=== PATIENT | female | born 1940 ===

== ENCOUNTER 2016-09-19 11:23 | Inpatient (IN) | payer BC ==
[2016-09-19] MEDS ORDERED: Dextrose 50% Syringe 50 ML* 25 GM/50 ML SYRINGE IV PUSH PRN (12:43)
[2016-09-19] MEDS ORDERED: Sevelamer TAB* 800 MG PO SCH (13:00)
[2016-09-19 13:57] LABS: Albumin 3.5 g/dL (3.2-5.2); BUN/Creatinine Ratio 5.1 (8-20); Calcium 9.8 mg/dL (8.6-10.3); EGFR African American 9.8 (>60); EGFR Non-African American 7.6 (>60); Globulin 3.3 g/dL (2-4); Potassium 3.6 mmol/L (3.5-5.0); Total Bilirubin 0.5 mg/dL (0.2-1.0); Total Protein 6.8 g/dL (6.4-8.9)
[2016-09-19] MEDS: Aspirin Low Dose CHEW TAB* 81 MG PO SCH (15:50)
[2016-09-19] MEDS: Metoprolol Succinate XL TAB* 25 MG PO SCH (15:50)
[2016-09-19] MEDS: Heparin VIAL(*) 5000 UNITS/ML VIAL (FIVE THOUSAND) SUBCUT SCH ×2 (15:51→22:20)
--- NOTE | 2016-09-19 16:51 | HP ---
MEDICINE HISTORY AND PHYSICAL: DATE OF ADMISSION: 09/19/16 PROVIDER: Renee Sim NP. ATTENDING PHYSICIAN: Dr. Octavio Otoole* (dictated by Renee Sim NP). CONSULTING PHYSICIAN: Dr. Gary Hernandez, Nephrology. PRIMARY CARE PHYSICIAN: Dr. Adria Maurice. CHIEF COMPLAINT: Right knee giving way. HISTORY OF PRESENT ILLNESS: Ms. Roche is a 76-year-old female with a past medical history significant for chronic renal failure stage III, on hemodialysis ; diabetes; hypertension; syncope who presented to the ED at [facility] after falling at home. The patient states that she has had recurrent problem with her right knee giving out and having falls due to this process. She states that this happens approximately every other day and she has been evaluated in the [facility] ER multiple times with no acute findings. She does have an upcoming appointment with Dr. Terrell that was scheduled; however, this most recent times , yesterday, the patient fell and states that she was on the floor for approximately 5 hours. She reports she was able to call and receive help. After this episode, she discussed with her son and feels that it may be appropriate for her to be placed and more over she can receive further assistance. She denies any head injury from this most recent fall. She does report some low back discomfort. She denies any neck pain, headache, or dizziness. She denies any focal weakness, tingling, or numbness in her extremities. She does report right knee pain associated with weight bearing. She denies any chest pain, shortness of breath, palpitations, or syncope. PAST MEDICAL HISTORY: Significant for: 1. Chronic renal failure stage III, on hemodialysis. 2. Type 2 diabetes. 3. Hypertension. 4. History of syncope. 5. Gout. 6. GERD. PAST SURGICAL HISTORY: Includes AV fistula placed in the left upper extremity. MEDICATIONS: 1. Omeprazole 20 mg b.i.d. 2. Renvela 800 mg q.i.d. 3. Metoprolol succinate XL 25 mg daily. 4. Aspirin 81 mg daily. 5. Amlodipine 5 mg at bedtime. ALLERGIES: Include ALLOPURINOL and INDOMETHACIN. FAMILY HISTORY: The patient reports that she had a father who lived to be 94- years old before passing away and a mother who lived to 100 years old. She does not know of any other medical history for her parents or other family members. SOCIAL HISTORY: She reports being a former smoker, but states that she quit over 50 years ago. She reports very rare alcohol use and denies any illicit drug use. She lives at home alone in an apartment. She does have access to an alarm in the apartment to notify her need for help. She has 2 sons who check in on her. Her sons, Ed and are both her emergency decision makers although she lists Ed Merritt as the primary healthcare proxy in the event of an emergency. REVIEW OF SYSTEMS: The patient denies fever, changes in appetite. She denies chest pain, edema, palpitations, or syncope. She denies shortness of breath, cough, hemoptysis, or recent flu-like or cold-like symptoms. She denies abdominal pain, nausea, vomiting, or diarrhea. She denies any dysuria or hematuria. She denies focal weakness or sensory loss. She denies tingling or numbness in her extremities. She denies any new visual, hearing, or swallowing complaints. She does report right knee pain and lower back pain. She denies any new rashes or lesions. She denies anxiety or depression. PHYSICAL EXAMINATION GENERAL: Ms. Roche is a 76-year-old female who is sitting up in the hospital bed in no acute distress. She is well nourished, well developed. She is alert and oriented. She is pleasant and cooperative. She is in no acute distress. VITAL SIGNS: Temperature 97.4, pulse rate 77, respiratory rate 18, blood pressure 141/89, O2 saturation 95% on room air. HEENT: Head is atraumatic, normocephalic. Face is symmetrical. Pupils are equal, round, and reactive to light. Extraocular movements are intact. External ears and nose are normal. Oral mucosa appears moist. There is no oropharyngeal erythema or exudate. NECK: Supple. No lymphadenopathy noted. No JVD noted. RESPIRATORY: Lungs are clear to auscultation. There is no accessory muscle use. CARDIAC: S1 and S2 heart sounds. Regular rate and rhythm. ABDOMEN: Soft, nontender, nondistended. Bowel sounds are present in all 4 quadrants. EXTREMITIES: The patient does have pitting edema to the bilateral lower extremities with the right slightly greater than the left. MUSCULOSKELETAL: There is no clubbing or cyanosis. The patient is able to move extremities. There is a right knee edema as well as lower extremity edema. SKIN: Limited examination, appears grossly intact. There is an area of erythema to the coccyx that is not open. NEUROLOGIC: No focal deficits noted. Cranial nerves II through XII are grossly intact. PSYCH: She is alert and oriented x3. Her affect is appropriate. LABORATORY DATA AND DIAGNOSTIC STUDIES: BMP was not included with her transfer records. A CBC from this morning shows WBC count of 2.76, hemoglobin of 7.8, hematocrit 35.6, platelet count 181. CT of the pelvis without contrast this morning shows no acute fracture or dislocation. CT of the lumbar spine shows degenerative changes as described without acute fracture or subluxation. Medical records from [facility] were reviewed. ASSESSMENT AND PLAN: Ms. Roche is a 76-year-old female who presented to the ED at [facility] today for evaluation of a fall and right knee derangements. She will be admitted as an inpatient to [facility] for placement and with need for dialysis. Plan is as follows: 1. Multiple falls at home secondary to right knee weakness: Admit as an inpatient. PT/OT consults are ordered. Social work has been consulted. The patient has reportedly had multiple falls and likely needs a safer placement for the PT, OT, and evaluation of her ability to safely ambulate. The patient has limited range of motion of the right knee and was actually due to see Ortho as an outpatient. At this time, we will continue with therapies and evaluation by PT/OT and have her to be out of bed with assistance. She does have some lower extremity edema bilaterally which she says is normal. The calves were nontender and she does report having a brace on the knee previously which resulted in increased swelling in the lower extremity. We will continue to monitor and order GOSIA hose for the patient. 2. Chronic renal failure stage III: The patient reportedly attends dialysis Sunday, Sunday, Fridays in [place] with [facility]. I have discussed the patient with Dr. Hernandez who will see her and help in assisting and also arranging her dialysis here while we try to obtain placement for the patient. We will continue her Renvela and order her renal diet. 3. History of diabetes: The patient is not currently on medication. We will order fingerstick blood glucose checks and cover with lispro sliding scale insulin. 4. Hypertension: Continue home amlodipine and metoprolol. 5. Gastroesophageal reflux disease: Continue omeprazole. 6. Fluids, electrolytes, and nutrition: She is ordered a renal diet. 7. DVT prophylaxis: She is at high risk. She is ordered subcu heparin and GOSIA hose. 8. Code status: She is a full code. TIME SPENT: Total time spent on this admission was approximately 60 minutes, more than half that time was spent [id number] with the patient obtaining history and physical, performing physical examination, and reviewing the plan of care. Plan of care was also reviewed with my attending, Dr. Otoole, who is in agreement. RENEE SIM NP CC: Dr. Adria Maurice * [id number]/CPS #: [id number] [facility]
[2016-09-19] MEDS: Sevelamer TAB* 800 MG PO SCH ×2 (18:32→21:05)
[2016-09-19] MEDS: Insulin LISPRO* 1 UNITS UNIT SUBCUT SCH (18:33)
[2016-09-19] MEDS: amLODIPine TAB* 5 MG PO SCH (21:05)
[2016-09-19] MEDS: Omeprazole CAP* 20 MG PO SCH (21:05)
[2016-09-20 05:33] LABS: Hematocrit 35 % (35-47); Hemoglobin 10.9 g/dl (12.0-16.0); Mean Corpuscular HGB Conc 32 g/dl (31-36); Mean Corpuscular Hemoglobin 27 pg (27-31); Mean Corpuscular Volume 84 fL (80-97); Mean Platelet Volume 8 um3 (7.4-10.4); Red Blood Count 4.09 10^6/ul (4.0-5.4); Red Cell Distribution Width 17 % (10.5-15); White Blood Count 2.8 10^3/ul (3.5-10.8)
[2016-09-20 05:35] LABS: Add Diff/Slide Review? Slide Review Added; Comments Flag Yes
[2016-09-20 05:45] LABS: BUN/Creatinine Ratio 5.6 (8-20); Calcium 9.6 mg/dL (8.6-10.3); EGFR African American 7.8 (>60); EGFR Non-African American 6.1 (>60); Potassium 4.3 mmol/L (3.5-5.0)
[2016-09-20] MEDS: Heparin VIAL(*) 5000 UNITS/ML VIAL (FIVE THOUSAND) SUBCUT SCH ×3 (05:50→22:36)
[2016-09-20] MEDS: Insulin LISPRO* 1 UNITS UNIT SUBCUT SCH ×3 (08:18→16:49)
[2016-09-20] MEDS: Metoprolol Succinate XL TAB* 25 MG PO SCH (08:52)
[2016-09-20] MEDS: Sevelamer TAB* 800 MG PO SCH ×4 (08:52→22:14)
[2016-09-20] MEDS: Aspirin Low Dose CHEW TAB* 81 MG PO SCH (08:52)
[2016-09-20] MEDS: Omeprazole CAP* 20 MG PO SCH ×2 (08:52→22:13)
--- NOTE | 2016-09-20 17:43 | PN ---
Subjective Date of Service: 09/20/16 Interval History: Patient seen and examined at bedside. Pt states that she is feeling well today. Pt reports some dizziness with dialysis earlier today, but that is gone now. Denies fever, chills, shortness of breath, chest discomfort, N/V/D. Family History: Unchanged from Admission Social History: Unchanged from Admission Past Medical History: Unchanged from Admission Objective Active Medications: Amlodipine Besylate (Norvasc Tab*) 5 mg PO BEDTIME [facility] Aspirin (Aspirin Low Dose Tab*) 81 mg PO DAILY COUNTS [facility]CLUDE 234 BEDS AT [facility] Dextrose (D50w Syringe 50 Ml*) 12.5 gm IV PUSH .FOR FS < 60 - SS PRN Reason: FS < 60 Heparin Sodium (Porcine) (Heparin Vial(*)) 5,000 units SUBCUT Q8HR [facility] Insulin Human Lispro (Humalog*) 0 units SUBCUT AC COUNTS INCLUDE 234 BEDS AT THE [facility] Reason: Protocol Metoprolol Succinate (Toprol Xl Tab*) 25 mg PO DAILY COUNTS INCLUDE 234 BEDS AT THE [facility] Omeprazole (Prilosec Cap*) 20 mg PO BID [facility] Sevelamer Carbonate (Renvela Tab*) 800 mg PO QID [facility] Vital Signs 09/19/16 09/20/16 09/20/16 20:00 00:10 04:09 Temperature 97.5 F Pulse Rate 72 65 Respiratory 16 18 14 Rate Blood Pressure 148/70 150/72 (mmHg) O2 Sat by Pulse 94 97 Oximetry 09/20/16 09/20/16 09/20/16 07:27 08:00 11:03 Temperature 97.4 F 97.7 F Pulse Rate 70 63 Respiratory 16 16 16 Rate Blood Pressure 149/64 137/55 (mmHg) O2 Sat by Pulse 95 99 Oximetry Oxygen Devices in Use Now: None Appearance: NAD, sitting up in a chair. Eyes: No Scleral Icterus, PERRLA Ears/Nose/Mouth/Throat: NL Teeth, Lips, Gums, Mucous Membranes Moist Neck: NL Appearance and Movements; NL JVP, Trachea Midline Respiratory: Symmetrical Chest Expansion and Respiratory Effort, Clear to Auscultation Cardiovascular: NL Sounds; No Murmurs; No JVD, RRR Abdominal: NL Sounds; No Tenderness; No Distention - Bowel sounds present Extremities: - - 1-2+ bilateral LE edema Skin: No Rash or Ulcers Neurological: Alert and Oriented x 3, NL Muscle Strength and Tone Lines/Tubes/Other Access: Clean, Dry and Intact Peripheral IV - site benign Nutrition: Taking PO's Result Diagrams: 09/20/16 05:13 09/20/16 05:13 Assess/Plan/Problems-Billing Assessment: Ms. Roche is a 76 yo female with PMH significant for renal failure - on hemodialysis, DM, HTN and GERD who presented to the emergency room with complaints of falling at home d/t right knee weakness. - Patient Problems (1) Multiple falls Code(s): R29.6 - REPEATED FALLS SNOMED Code(s): 204745721 Comment: - Continue OT/PT (2) Chronic renal failure, stage 3 (moderate) Code(s): N18.3 - CHRONIC KIDNEY DISEASE, STAGE 3 (MODERATE) SNOMED Code(s): 45505648 Comment: - Continue dialysis M,W,F - Continue Renvela and renal diet (3) Diabetes Code(s): E11.9 - TYPE 2 DIABETES MELLITUS WITHOUT COMPLICATIONS SNOMED Code(s) : 53617258 Comment: - Glucose 120-190's - Continue Lispro SS (4) HTN (hypertension) Code(s): I10 - ESSENTIAL (PRIMARY) HYPERTENSION SNOMED Code(s): 97789425 Comment: - SBP 130-150's - Continue amlodipine and metoprolol (5) GERD (gastroesophageal reflux disease) Code(s): K21.9 - GASTRO-ESOPHAGEAL REFLUX DISEASE WITHOUT ESOPHAGITIS SNOMED Code(s): 142726298 Comment: - Continue Omeprazole (6) DVT prophylaxis Code(s): RBW8620 - SNOMED Code(s): 855432443 Comment: -Continue SQ heparin and TEDs (7) Full code status Code(s): Z78.9 - OTHER SPECIFIED HEALTH STATUS SNOMED Code(s): 090683241 Status and Disposition: Inpatient. Plan for discharge to a detention facility.
[2016-09-20] MEDS: amLODIPine TAB* 5 MG PO SCH (22:14)
[2016-09-21] MEDS: Acetaminophen TAB* 325 MG PO PRN (03:41)
[2016-09-21] MEDS: Heparin VIAL(*) 5000 UNITS/ML VIAL (FIVE THOUSAND) SUBCUT SCH ×3 (06:11→21:51)
[2016-09-21 07:29] LABS: Hematocrit 33 % (35-47); Hemoglobin 10.3 g/dl (12.0-16.0); Mean Corpuscular HGB Conc 32 g/dl (31-36); Mean Corpuscular Hemoglobin 27 pg (27-31); Mean Corpuscular Volume 85 fL (80-97); Mean Platelet Volume 8 um3 (7.4-10.4); Red Blood Count 3.84 10^6/ul (4.0-5.4); Red Cell Distribution Width 17 % (10.5-15)
[2016-09-21 07:36] LABS: Comments Flag Yes
[2016-09-21] MEDS: Insulin LISPRO* 1 UNITS UNIT SUBCUT SCH ×3 (07:48→18:22)
[2016-09-21 07:55] LABS: BUN/Creatinine Ratio 4.3 (8-20); EGFR African American 13.2 (>60); EGFR Non-African American 10.3 (>60); Potassium 4.4 mmol/L (3.5-5.0)
[2016-09-21] MEDS: Metoprolol Succinate XL TAB* 25 MG PO SCH (10:12)
[2016-09-21] MEDS: Aspirin Low Dose CHEW TAB* 81 MG PO SCH (10:13)
[2016-09-21] MEDS: Omeprazole CAP* 20 MG PO SCH ×2 (10:13→21:49)
[2016-09-21] MEDS: Sevelamer TAB* 800 MG PO SCH ×4 (10:13→21:49)
--- NOTE | 2016-09-21 14:42 | PN ---
Subjective Date of Service: 09/21/16 Interval History: Patient seen this afternoon and again later in the day. Initially says she was confused. Had just woken up from a nap and could not recall where she was or why she was here. Also felt like she had weakness in the legs and that "they're asleep". Later on re-examination she felt back to baseline, AOx3 and recalls the confusion earlier. Family History: Unchanged from Admission Social History: Unchanged from Admission Past Medical History: Unchanged from Admission Objective Active Medications: Acetaminophen (Tylenol Tab*) 650 mg PO Q6H PRN PRN Reason: PAIN Last Admin: 09/21/16 03:41 Dose: 650 mg Amlodipine Besylate (Norvasc Tab*) 5 mg PO BEDTIME [facility] Last Admin: 09/20/16 22:14 Dose: 5 mg Aspirin (Aspirin Low Dose Tab*) 81 mg PO DAILY [facility] Last Admin: 09/21/16 10:13 Dose: 81 mg Dextrose (D50w Syringe 50 Ml*) 12.5 gm IV PUSH .FOR FS < 60 - SS PRN PRN Reason: FS < 60 Heparin Sodium (Porcine) (Heparin Vial(*)) 5,000 units SUBCUT Q8HR [facility] Last Admin: 09/21/16 13:01 Dose: 5,000 units Insulin Human Lispro (Humalog*) 0 units SUBCUT AC [facility] PRN Reason: Protocol Last Admin: 09/21/16 13:02 Dose: 1 units Metoprolol Succinate (Toprol Xl Tab*) 25 mg PO DAILY [facility] Last Admin: 09/21/16 10:12 Dose: 25 mg Omeprazole (Prilosec Cap*) 20 mg PO BID [facility] Last Admin: 09/21/16 10:13 Dose: 20 mg Sevelamer Carbonate (Renvela Tab*) 800 mg PO QID [facility] Last Admin: 09/21/16 13:01 Dose: 800 mg Vital Signs 09/20/16 09/20/16 09/21/16 20:00 23:29 03:38 Temperature 97.3 F 97.7 F Pulse Rate 66 75 Respiratory 16 16 16 Rate Blood Pressure 134/56 135/61 (mmHg) O2 Sat by Pulse 98 97 Oximetry 09/21/16 07:16 Temperature 97.5 F Pulse Rate 68 Respiratory 16 Rate Blood Pressure 148/63 (mmHg) O2 Sat by Pulse 97 Oximetry Oxygen Devices in Use Now: None Appearance: Elderly, F, laying in bed in NAD Eyes: No Scleral Icterus Ears/Nose/Mouth/Throat: Mucous Membranes Moist Neck: NL Appearance and Movements; NL JVP Respiratory: Symmetrical Chest Expansion and Respiratory Effort, Clear to Auscultation Cardiovascular: NL Sounds; No Murmurs; No JVD, RRR Abdominal: NL Sounds; No Tenderness; No Distention Lymphatic: No Cervical Adenopathy Extremities: No Edema Skin: - - LUE fistula Neurological: - - Initially confused, CN II-XII intact, B/L LE weakness with hip flexion but patient states this has been ongoing, sensation intact and symmetric throught UEs and LEs Result Diagrams: 09/21/16 06:30 09/21/16 06:30 Assess/Plan/Problems-Billing Assessment: Ms. Roche is a 76 yo female with PMH significant for renal failure - on hemodialysis, DM, HTN and GERD who presented to the emergency room with complaints of falling at home d/t right knee weakness. - Patient Problems (1) Confusion Current Visit: Yes Comment: Etiology unclear. Was just after she woke up and cleared later. Will check TSH, B12, ammonia. Does not seem c/w CVA, hold on any imaging. Continue to monitor closely. (2) Multiple falls Current Visit: Yes Comment: - Continue OT/PT (3) ESRD (end stage renal disease) Current Visit: Yes Comment: on HD MWF. Continue renvela (4) GERD (gastroesophageal reflux disease) Current Visit: No Comment: - Continue Omeprazole (5) HTN (hypertension) Current Visit: No Status: Chronic Code(s): I10 - ESSENTIAL (PRIMARY) HYPERTENSION SNOMED Code(s): 23415052 Comment: - Continue amlodipine and metoprolol (6) Diabetes Current Visit: No Comment: - Continue Lispro SS (7) DVT prophylaxis Current Visit: Yes Comment: HSQ Status and Disposition: Inpatient. Plan for discharge to a [facility] facility.
[2016-09-21 17:18] LABS: TSH (Thyroid Stimulating Horm) 2.29 mcIU/mL (0.34-5.60)
[2016-09-21] MEDS: amLODIPine TAB* 5 MG PO SCH (21:49)
[2016-09-22] MEDS: Heparin VIAL(*) 5000 UNITS/ML VIAL (FIVE THOUSAND) SUBCUT SCH ×3 (05:59→21:42)
[2016-09-22] MEDS: Aspirin Low Dose CHEW TAB* 81 MG PO SCH (07:56)
[2016-09-22] MEDS: Omeprazole CAP* 20 MG PO SCH ×2 (07:56→20:11)
[2016-09-22] MEDS: Metoprolol Succinate XL TAB* 25 MG PO SCH (07:56)
[2016-09-22] MEDS: Sevelamer TAB* 800 MG PO SCH ×3 (07:56→17:23)
[2016-09-22] MEDS: Insulin LISPRO* 1 UNITS UNIT SUBCUT SCH ×3 (08:13→17:23)
--- NOTE | 2016-09-22 12:11 | DCNOTE ---
Patient seen at HD. No further episodes of confusion. Says her R leg feels "asleep" but this has been ongoing for some time. Pleased to be going to SNF. On exam, RRR, s1 and s2 present, no m/g/r, LUE fistula functioning well, some decreased sensation over parts of the RLE, mild petechial rash (chronic) D/C to [facility]
--- NOTE | 2016-09-22 15:39 | PN ---
Subjective Date of Service: 09/22/16 Interval History: Discharged delayed. Subjective and objective as per discharge note. Family History: Unchanged from Admission Social History: Unchanged from Admission Past Medical History: Unchanged from Admission Objective Active Medications: Acetaminophen (Tylenol Tab*) 650 mg PO Q6H PRN PRN Reason: PAIN Last Admin: 09/21/16 03:41 Dose: 650 mg Amlodipine Besylate (Norvasc Tab*) 5 mg PO BEDTIME [facility] Last Admin: 09/21/16 21:49 Dose: 5 mg Aspirin (Aspirin Low Dose Tab*) 81 mg PO DAILY [facility] Last Admin: 09/22/16 07:56 Dose: 81 mg Dextrose (D50w Syringe 50 Ml*) 12.5 gm IV PUSH .FOR FS < 60 - SS PRN PRN Reason: FS < 60 Heparin Sodium (Porcine) (Heparin Vial(*)) 5,000 units SUBCUT Q8HR [facility] Last Admin: 09/22/16 14:46 Dose: 5,000 units Insulin Human Lispro (Humalog*) 0 units SUBCUT AC [facility] PRN Reason: Protocol Last Admin: 09/22/16 11:55 Dose: Not Given Metoprolol Succinate (Toprol Xl Tab*) 25 mg PO DAILY [facility] Last Admin: 09/22/16 07:56 Dose: 25 mg Omeprazole (Prilosec Cap*) 20 mg PO BID [facility] Last Admin: 09/22/16 07:56 Dose: 20 mg Sevelamer Carbonate (Renvela Tab*) 3,200 mg PO TID WITH MEALS [facility] Vital Signs 09/21/16 09/21/16 09/21/16 20:00 21:40 23:28 Temperature 98.0 F 97.7 F Pulse Rate 69 71 Respiratory 16 16 20 Rate Blood Pressure 135/64 145/60 (mmHg) O2 Sat by Pulse 100 100 Oximetry 09/22/16 09/22/16 07:27 08:00 Temperature 97.5 F Pulse Rate 69 Respiratory 18 18 Rate Blood Pressure 146/78 (mmHg) O2 Sat by Pulse 98 Oximetry Oxygen Devices in Use Now: None Result Diagrams: 09/21/16 06:30 09/21/16 06:30 Assess/Plan/Problems-Billing Assessment: Ms. Roche is a 76 yo female with PMH significant for renal failure - on hemodialysis, DM, HTN and GERD who presented to the emergency room with complaints of falling at home d/t right knee weakness. - Patient Problems (1) Confusion Current Visit: Yes Comment: Resolved, no recurrence. Normal TSH, B12, ammonia. (2) Multiple falls Current Visit: Yes Comment: - Continue OT/PT (3) ESRD (end stage renal disease) Current Visit: Yes Comment: on HD MWF. Continue renvela (changed to accurate dose) (4) GERD (gastroesophageal reflux disease) Current Visit: No Comment: - Continue Omeprazole (5) HTN (hypertension) Current Visit: No Status: Chronic Code(s): I10 - ESSENTIAL (PRIMARY) HYPERTENSION SNOMED Code(s): 54864378 Comment: - Continue amlodipine and metoprolol (6) Diabetes Current Visit: No Comment: - Continue Lispro SS (7) DVT prophylaxis Current Visit: Yes Comment: HSQ Status and Disposition: Inpatient. Plan for discharge to a [facility] facility.
[2016-09-22] MEDS: amLODIPine TAB* 5 MG PO SCH (20:11)
[2016-09-22] MEDS: Acetaminophen TAB* 325 MG PO PRN (20:15)
--- NOTE | 2016-09-23 01:43 | DS ---
DISCHARGE SUMMARY: DATE OF ADMISSION: 09/19/16 DATE OF DISCHARGE: 09/22/16 PRIMARY CARE PHYSICIAN: Dr. Maurice. PRINCIPAL DISCHARGE DIAGNOSIS: Weakness and falls. SECONDARY DIAGNOSES: 1. Hypertension. 2. End-stage renal disease, on hemodialysis. 3. Gastroesophageal reflux disease. DISCHARGE MEDICATION REGIMEN: 1. Omeprazole 20 mg by mouth 2 times daily. 2. Sevelamer 800 mg by mouth 4 times daily. 3. Metoprolol succinate 25 mg by mouth daily. 4. Aspirin 81 mg by mouth daily. 5. Amlodipine 5 mg by mouth at bedtime. 6. Insulin lispro sliding scale. HISTORY OF PRESENT ILLNESS AND HOSPITAL SUMMARY: Please see the full history and physical by Ivonne Altamirano NP, for full details. Briefly, Ms. Roche is a 76-year-old female with a past medical history as above who presented as a transfer from [place] after she initially presented there with recurrent falls at home. The patient had extensive imaging done, with no abnormalities noted. She was transferred to [facility] and she is a chronic dialysis patient, which they do not offer at [facility]. The patient was evaluated by Physical Therapy here and it was felt that she would benefit from rehab facility. She will be transferred to [facility]. She should keep her upcoming appointment as an outpatient with Dr. Terrell of Orthopedics, which was scheduled prior to this hospitalization. TIME SPENT: Total time spent on this discharge 30 minutes. This is a summary of the hospitalization. Please see the full medical record for further details. CC: Dr. Adria Maurice * [id number]/CPS #: [id number] [facility]
[2016-09-23] MEDS: Heparin VIAL(*) 5000 UNITS/ML VIAL (FIVE THOUSAND) SUBCUT SCH ×3 (05:23→21:43)
[2016-09-23] MEDS ORDERED: Senna TAB PO PRN (05:25)
[2016-09-23] MEDS ORDERED: Polyethylene Glycol 3350* 17 GM PACKET PO PRN (05:25)
[2016-09-23] MEDS: Docusate CAP* 100 MG PO PRN ×2 (05:50→21:43)
[2016-09-23] MEDS: Insulin LISPRO* 1 UNITS UNIT SUBCUT SCH ×3 (07:36→16:32)
[2016-09-23] MEDS: Metoprolol Succinate XL TAB* 25 MG PO SCH (09:02)
[2016-09-23] MEDS: Omeprazole CAP* 20 MG PO SCH ×2 (09:02→20:29)
[2016-09-23] MEDS: Sevelamer TAB* 800 MG PO SCH ×3 (09:02→18:16)
[2016-09-23] MEDS: Aspirin Low Dose CHEW TAB* 81 MG PO SCH (09:03)
[2016-09-23] MEDS: Citalopram TAB* 10 MG PO SCH (13:32)
--- NOTE | 2016-09-23 18:19 | PN ---
Subjective Date of Service: 09/23/16 Interval History: Seen and examined Still feels "confused" but has difficulty indicating how. Tells me she would have difficulty if we changed topics but we spoke about her hospital stay, the weather, and the recent election without trouble. She also indicates she has been feeling depressed. Family History: Unchanged from Admission Social History: Unchanged from Admission Past Medical History: Unchanged from Admission Objective Active Medications: Acetaminophen (Tylenol Tab*) 650 mg PO Q6H PRN PRN Reason: PAIN Last Admin: 09/22/16 20:15 Dose: 650 mg Amlodipine Besylate (Norvasc Tab*) 5 mg PO BEDTIME [facility] Last Admin: 09/22/16 20:11 Dose: 5 mg Aspirin (Aspirin Low Dose Tab*) 81 mg PO DAILY [facility] Last Admin: 09/23/16 09:03 Dose: 81 mg Citalopram Hydrobromide (Celexa Tab*) 10 mg PO DAILY [facility] Last Admin: 09/23/16 13:32 Dose: 10 mg Dextrose (D50w Syringe 50 Ml*) 12.5 gm IV PUSH .FOR FS < 60 - SS PRN PRN Reason: FS < 60 Docusate Sodium (Colace Cap*) 100 mg PO BID PRN PRN Reason: CONSTIPATION Last Admin: 09/23/16 05:50 Dose: 100 mg Heparin Sodium (Porcine) (Heparin Vial(*)) 5,000 units SUBCUT Q8HR [facility] Last Admin: 09/23/16 13:32 Dose: 5,000 units Insulin Human Lispro (Humalog*) 0 units SUBCUT AC [facility] PRN Reason: Protocol Last Admin: 09/23/16 16:32 Dose: Not Given Metoprolol Succinate (Toprol Xl Tab*) 25 mg PO DAILY [facility] Last Admin: 09/23/16 09:02 Dose: 25 mg Omeprazole (Prilosec Cap*) 20 mg PO BID [facility] Last Admin: 09/23/16 09:02 Dose: 20 mg Polyethylene Glycol/Electrolytes (Miralax*) 17 gm PO DAILY PRN PRN Reason: CONSTIPATION Last Admin: 09/23/16 09:02 Dose: 17 gm Senna (Senokot Tab*) 2 tab PO BEDTIME PRN PRN Reason: CONSTIPATION Sevelamer Carbonate (Renvela Tab*) 3,200 mg PO TID WITH MEALS [facility] Last Admin: 09/23/16 12:45 Dose: 3,200 mg Vital Signs 09/22/16 09/22/16 09/23/16 20:00 23:55 07:37 Temperature 97.8 F Pulse Rate 73 Respiratory 17 19 16 Rate Blood Pressure 154/62 (mmHg) O2 Sat by Pulse 97 Oximetry 09/23/16 09/23/16 09/23/16 07:53 11:00 15:07 Temperature 97.6 F 97.5 F 98.3 F Pulse Rate 70 71 72 Respiratory 20 18 16 Rate Blood Pressure 137/59 151/72 147/68 (mmHg) O2 Sat by Pulse 100 100 100 Oximetry Oxygen Devices in Use Now: None Appearance: NAD Eyes: No Scleral Icterus, PERRLA Ears/Nose/Mouth/Throat: NL Teeth, Lips, Gums, Clear Oropharnyx, Mucous Membranes Moist Neck: NL Appearance and Movements; NL JVP, Trachea Midline Respiratory: Symmetrical Chest Expansion and Respiratory Effort, Clear to Auscultation Cardiovascular: NL Sounds; No Murmurs; No JVD, RRR Abdominal: NL Sounds; No Tenderness; No Distention Lymphatic: No Cervical Adenopathy Extremities: No Edema Skin: No Rash or Ulcers Neurological: Alert and Oriented x 3 Result Diagrams: 09/21/16 06:30 09/21/16 06:30 Assess/Plan/Problems-Billing Assessment: Ms. Roche is a 76 yo female with PMH significant for renal failure - on hemodialysis, DM, HTN and GERD who presented to the emergency room with complaints of falling at home d/t right knee weakness. - Patient Problems (1) Depression Comment: Pt indicated that she has thought about taking her life but has no plan. She sites her family as the reason she would not hurt herself. I have asked for a psych cconsult. Will hold on their eval prior starting medications. (2) Confusion Comment: Resolved, no recurrence. Normal TSH, B12, ammonia. Possibly in setting of depression (3) ESRD (end stage renal disease) Comment: on HD MWF. Continue renvela (changed to accurate dose) (4) Diabetes Comment: - Continue Lispro SS (5) GERD (gastroesophageal reflux disease) Comment: - Continue Omeprazole (6) HTN (hypertension) Comment: - Continue amlodipine and metoprolol (7) DVT prophylaxis Comment: HSQ Status and Disposition: Inpatient. Plan for discharge to a longterm facility.
[2016-09-23] MEDS: amLODIPine TAB* 5 MG PO SCH (20:29)
--- NOTE | 2016-09-23 20:32 | CONS ---
CONSULTATION NOTE: DATE OF CONSULT: ATTENDING PHYSICIAN: Damon Mckeon MD. CONSULTING PHYSICIAN: Rashi Milligan MD REASON FOR CONSULT: Depressed mood with suicidal ideation. PSYCHIATRIC HISTORY: The patient is a 76-year-old white female with no prior psychiatric hi story who was admitted secondary to chronic renal failure after falling at her home in [place], [place]. The patient apparently has had problems with her right knee giving out with subsequent f alls. She has had multiple ER visits to [facility]. Her most recent visit to [facility] resulted in transfer to [facility] secondary to her need fo r hemodialysis. The primary team is concerned because the patient appeared to have a constricted af fect and when they questioned her about depressive symptoms, she endorsed that she was in fact not o nly depressed but also was having suicidal thought. On examination, she is a delightful ageing whit e female who was found sitting in her chair with excellent posture. Her affect is actually somewhat bright as I enter and she welcomes me into her room, telling me that she was expecting my visit. S he does go on to state that she has had numerous stressors recently. Apparently, her of 45 years in July 2015 and the past year without him has been very troubling for her. She note s that about 2 months ago, she started to notice herself feeling depressed and when screened for brennon rovegetative symptoms she endorses insomnia, anhedonia, guilt, decreased energy, poor concentration, lack of appetite, and psychomotor slowing. She indicates that the suicidal thoughts have occurred for about a week. She has had thoughts of plunging her dialysis needle deeper into her port to caus e further bleeding and end her life that way. When asked whether this is an active thought versus p assive, she indicates that it is a passive idea and that she would never dream of actually ending he r life due to the emotional impact it would have on her 2 sons and her numerous grandchildren. Zoran tional stressors include what she is telling me is a repossession of her car and house due to financ ial limitations. She asked me to call her son Ed Sanchez for further collateral on this; however, when I called his number there was no answer and no voice message. At any rate, the patient indicat es that back in July, she left her home in [place], [place], and got a small apartment in [facility]. At this point, she is facing placement in a skilled nurse facility. PAST PSYCHIATRIC HISTORY: Noncontributory. She has never had suicidal ideations nor actions. She has never been on an antidepressant or received treatment including hospitalizations or medications. SUBSTANCE ABUSE HISTORY: Noncontributory. She has no history of alcohol, illicit drug, or tobacco abuse. PAST MEDICAL HISTORY: Significant for chronic renal failure stage 3 on hemodialysis, type 2 diabete s, hypertension, history of syncope, gout, and gastroesophageal reflux disorder. CURRENT MEDICATIONS: Include: 1. Omeprazole 20 mg b.i.d. 2. Renvela 800 mg p.o. 4 hours a day. 3. Metoprolol XL 25 mg daily. 4. Aspirin 81 mg daily. 5. Amlodipine 5 mg at bedtime. ALLERGIES: She is allergic to ALLOPURINOL and INDOMETHACIN. FAMILY HISTORY: She is unaware of anyone of her family having psychiatric problems. SOCIAL HISTORY: She indicates that she did smoke cigarettes but quit over 50 years ago. She is cur rently living in an apartment in [place], prior to this she lived in a home that she owned in [place], [place]. 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 She has 2 sons, who ar e very close to her and several grandchildren. MENTAL STATUS EXAM: The patient is an ageing white female who is dressed in a patient gown. She is sitting with excellent posture in a chair in her room. She makes good eye contact. She smiles suzi ropriately. Speech has a normal rate, tone and volume. Mood is depressed with a full affect. Thou ght process is linear and goal directed. Thought content is significant for her stress over her hali ing situation and her feeling that she misses her family. She is endorsing suicidal ideation that i s passive in nature and she has no intention or plan of actually ending her life. She denies homici dality. She denies auditory or visual hallucinations. Insight and judgment appears to be fair give n her willingness to receive antidepressant therapy. Cognitively, she is awake and alert with what would appear to be an average intellect. DIAGNOSES: [place] I: Major depressive disorder single episode, severe without psychotic features. Axi s II: Deferred. ASSESSMENT: The patient is a 76-year-old white female with a past medical history of end-st age renal disease who was admitted due to several recent falls in her home, who screens positive for depressed mood and suicidal ideations. It is my opinion that her suicidality is not dangerous in t he sense that it is only passive and she has numerous protective factors including her concern for h er family. She is clearly depressed with neurovegetative symptoms and for this reason, I would evelyn mmend initiation of antidepressant therapy. Because of her advanced age and the fact that she is on multiple medications, I think citalopram would be a good choice. We will start it at a conservativ e dose 10 mg p.o. daily and this can certainly be titrated further as she has been on it longer. Ps ychiatry will continue to follow her. Recommendations to primary team, I have already started Celex a 10 mg p.o. daily and Psychiatry will continue to be involved [facility]. Thank you for the opportunity to participate in the care of this delightful woman. [id number]/[facility] #: [id number]
[2016-09-24] MEDS: Acetaminophen TAB* 325 MG PO PRN ×2 (01:11→21:57)
[2016-09-24] MEDS: Heparin VIAL(*) 5000 UNITS/ML VIAL (FIVE THOUSAND) SUBCUT SCH ×3 (05:16→21:57)
[2016-09-24] MEDS: Insulin LISPRO* 1 UNITS UNIT SUBCUT SCH ×3 (07:53→17:26)
[2016-09-24] MEDS: Metoprolol Succinate XL TAB* 25 MG PO SCH (09:14)
[2016-09-24] MEDS: Sevelamer TAB* 800 MG PO SCH ×3 (09:14→17:32)
[2016-09-24] MEDS: Aspirin Low Dose CHEW TAB* 81 MG PO SCH (09:14)
[2016-09-24] MEDS: Citalopram TAB* 10 MG PO SCH (09:14)
[2016-09-24] MEDS: Omeprazole CAP* 20 MG PO SCH ×2 (09:14→21:57)
--- NOTE | 2016-09-24 16:17 | PN ---
Subjective Date of Service: 09/24/16 Interval History: Has no complaints today. Seems more upbeat. Anxious to leave the hospital Family History: Unchanged from Admission Social History: Unchanged from Admission Past Medical History: Unchanged from Admission Objective Active Medications: Acetaminophen (Tylenol Tab*) 650 mg PO Q6H PRN PRN Reason: PAIN Last Admin: 09/24/16 01:11 Dose: 650 mg Amlodipine Besylate (Norvasc Tab*) 5 mg PO BEDTIME [facility] Last Admin: 09/23/16 20:29 Dose: 5 mg Aspirin (Aspirin Low Dose Tab*) 81 mg PO DAILY [facility] Last Admin: 09/24/16 09:14 Dose: 81 mg Citalopram Hydrobromide (Celexa Tab*) 10 mg PO DAILY [facility] Last Admin: 09/24/16 09:14 Dose: 10 mg Dextrose (D50w Syringe 50 Ml*) 12.5 gm IV PUSH .FOR FS < 60 - SS PRN PRN Reason: FS < 60 Docusate Sodium (Colace Cap*) 100 mg PO BID PRN PRN Reason: CONSTIPATION Last Admin: 09/23/16 21:43 Dose: 100 mg Heparin Sodium (Porcine) (Heparin Vial(*)) 5,000 units SUBCUT Q8HR [facility] Last Admin: 09/24/16 12:43 Dose: 5,000 units Insulin Human Lispro (Humalog*) 0 units SUBCUT AC [facility] PRN Reason: Protocol Last Admin: 09/24/16 12:14 Dose: Not Given Metoprolol Succinate (Toprol Xl Tab*) 25 mg PO DAILY [facility] Last Admin: 09/24/16 09:14 Dose: 25 mg Omeprazole (Prilosec Cap*) 20 mg PO BID [facility] Last Admin: 09/24/16 09:14 Dose: 20 mg Polyethylene Glycol/Electrolytes (Miralax*) 17 gm PO DAILY PRN PRN Reason: CONSTIPATION Last Admin: 09/23/16 09:02 Dose: 17 gm Senna (Senokot Tab*) 2 tab PO BEDTIME PRN PRN Reason: CONSTIPATION Sevelamer Carbonate (Renvela Tab*) 3,200 mg PO TID WITH MEALS [facility] Last Admin: 09/24/16 12:43 Dose: 3,200 mg Vital Signs 09/23/16 09/23/16 09/23/16 19:18 20:00 23:27 Temperature 97.5 F 97.7 F Pulse Rate 72 71 Respiratory 16 17 17 Rate Blood Pressure 151/66 136/48 (mmHg) O2 Sat by Pulse 97 97 Oximetry 09/24/16 08:00 Temperature 97.2 F Pulse Rate 71 Respiratory 16 Rate Blood Pressure 142/65 (mmHg) O2 Sat by Pulse 98 Oximetry Oxygen Devices in Use Now: None Appearance: NAD Eyes: No Scleral Icterus, PERRLA, - Ears/Nose/Mouth/Throat: NL Teeth, Lips, Gums, Clear Oropharnyx, Mucous Membranes Moist, - Neck: NL Appearance and Movements; NL JVP, Trachea Midline Respiratory: Symmetrical Chest Expansion and Respiratory Effort, Clear to Auscultation Cardiovascular: NL Sounds; No Murmurs; No JVD, RRR Abdominal: NL Sounds; No Tenderness; No Distention, No Hepatosplenomegaly Lymphatic: No Cervical Adenopathy Extremities: No Edema, - - fistual with good bruit Neurological: Alert and Oriented x 3 Result Diagrams: 09/21/16 06:30 09/21/16 06:30 Assess/Plan/Problems-Billing Assessment: Ms. oRche is a 76 yo female with PMH significant for renal failure - on hemodialysis, DM, HTN and GERD who presented to the emergency room with complaints of falling at home d/t right knee weakness. - Patient Problems (1) Depression Comment: Appreciate psych consult started on celexa pt without any pasisve SI today (2) Confusion Comment: Resolved, no recurrence. Normal TSH, B12, ammonia. Possibly in setting of depression (3) ESRD (end stage renal disease) Comment: on HD MWF. Continue renvela (changed to accurate dose) (4) Diabetes Comment: - Continue Lispro SS (5) GERD (gastroesophageal reflux disease) Comment: - Continue Omeprazole (6) HTN (hypertension) Comment: - Continue amlodipine and metoprolol (7) DVT prophylaxis Comment: HSQ Status and Disposition: Inpatient. Plan for discharge to a longterm facility.
[2016-09-24] MEDS: amLODIPine TAB* 5 MG PO SCH (21:56)
[2016-09-25] MEDS: Heparin VIAL(*) 5000 UNITS/ML VIAL (FIVE THOUSAND) SUBCUT SCH ×3 (05:52→21:54)
[2016-09-25] MEDS: Insulin LISPRO* 1 UNITS UNIT SUBCUT SCH ×3 (08:21→17:38)
[2016-09-25] MEDS: Sevelamer TAB* 800 MG PO SCH ×3 (09:04→17:39)
[2016-09-25] MEDS: Metoprolol Succinate XL TAB* 25 MG PO SCH (09:05)
[2016-09-25] MEDS: Omeprazole CAP* 20 MG PO SCH ×2 (09:05→21:51)
[2016-09-25] MEDS: Citalopram TAB* 10 MG PO SCH (09:05)
[2016-09-25] MEDS: Aspirin Low Dose CHEW TAB* 81 MG PO SCH (09:05)
--- NOTE | 2016-09-25 13:56 | CONSULT ---
Identification - Patient Identification Reason for Psychiatric Consultation: Suicidal Ideation -: Patient is a 76 year old, F admitted on 09/19/16. - MHU Identification Employment Status: Disabled Hx Psychiatric Hospitalization: No History - Objective HPI: The patient was found today in the dialysis room. Her affect appears improved and she reports that she is likely being discharged soon to a SNF in [place], [place]. The patient denies any noticeable untoward effects from the citalopram we started over the weekend and she seems to be tolerating this well. She is delightful to talk to and tells me about her family and grandchildren. She denies any suicidal thoughts, plans or intentions since our previous meeting. Lab Results: Laboratory Tests 09/19/16 09/19/16 09/19/16 13:03 13:28 16:48 WBC RBC Hgb Hct MCV MCH MCHC RDW Plt Count MPV Neut % (Auto) Lymph % (Auto) Lewis % (Auto) Eos % (Auto) Baso % (Auto) Absolute Neuts (auto) Absolute Lymphs (auto) Absolute Monos (auto) Absolute Eos (auto) Absolute Basos (auto) Absolute Nucleated RBC Nucleated RBC % Sodium 134 Potassium 3.6 Chloride 99 L Carbon Dioxide 29 Anion Gap 6 BUN 28 H Creatinine 5.46 H Est GFR ( Amer) 9.8 Est GFR (Non-Af Amer) 7.6 BUN/Creatinine Ratio 5.1 L Glucose 84 POC Glucose (mg/dL) 103 138 H Calcium 9.8 Total Bilirubin 0.50 AST 9 L ALT 3 L Alkaline Phosphatase 58 Ammonia Total Protein 6.8 Albumin 3.5 Globulin 3.3 Albumin/Globulin Ratio 1.1 Vitamin B12 TSH 09/19/16 09/20/16 09/20/16 21:25 05:13 05:13 WBC 2.8 L RBC 4.09 Hgb 10.9 L Hct 35 MCV 84 MCH 27 MCHC 32 RDW 17 H Plt Count 158 MPV 8 Neut % (Auto) 56.5 Lymph % (Auto) 23.3 L Lewis % (Auto) 11.0 H Eos % (Auto) 5.9 Baso % (Auto) 3.3 H Absolute Neuts (auto) 1.6 Absolute Lymphs (auto) 0.6 L Absolute Monos (auto) 0.3 Absolute Eos (auto) 0.2 Absolute Basos (auto) 0.1 Absolute Nucleated RBC 0 Nucleated RBC % 0.1 Sodium 131 L Potassium 4.3 Chloride 97 L Carbon Dioxide 28 Anion Gap 6 BUN 37 H Creatinine 6.63 H Est GFR ( Amer) 7.8 Est GFR (Non-Af Amer) 6.1 BUN/Creatinine Ratio 5.6 L Glucose 117 H POC Glucose (mg/dL) 199 H Calcium 9.6 Total Bilirubin AST ALT Alkaline Phosphatase Ammonia Total Protein Albumin Globulin Albumin/Globulin Ratio Vitamin B12 [facility] 09/20/16 09/20/16 09/20/16 08:01 11:44 16:46 WBC RBC Hgb Hct MCV MCH MCHC RDW Plt Count MPV Neut % (Auto) Lymph % (Auto) Lewis % (Auto) Eos % (Auto) Baso % (Auto) Absolute Neuts (auto) Absolute Lymphs (auto) Absolute Monos (auto) Absolute Eos (auto) Absolute Basos (auto) Absolute Nucleated RBC Nucleated RBC % Sodium Potassium Chloride Carbon Dioxide Anion Gap BUN Creatinine Est GFR ( Amer) Est GFR (Non-Af Amer) BUN/Creatinine Ratio Glucose POC Glucose (mg/dL) 128 H 168 H 129 H Calcium Total Bilirubin AST ALT Alkaline Phosphatase Ammonia Total Protein Albumin Globulin Albumin/Globulin Ratio Vitamin B12 [facility] 09/20/16 09/21/16 09/21/16 22:13 06:30 06:30 WBC 3.0 L RBC 3.84 L Hgb 10.3 L Hct 33 L MCV 85 MCH 27 MCHC 32 RDW 17 H Plt Count 148 L MPV 8 Neut % (Auto) 51.2 Lymph % (Auto) 29.3 Lewis % (Auto) 12.0 H Eos % (Auto) 5.2 Baso % (Auto) 2.3 H Absolute Neuts (auto) 1.5 Absolute Lymphs (auto) 0.9 L Absolute Monos (auto) 0.4 Absolute Eos (auto) 0.2 Absolute Basos (auto) 0.1 Absolute Nucleated RBC 0 Nucleated RBC % 0 Sodium 129 L Potassium 4.4 Chloride 102 Carbon Dioxide 21 L Anion Gap 6 BUN 18 Creatinine 4.21 H Est GFR ( Amer) 13.2 Est GFR (Non-Af Amer) 10.3 BUN/Creatinine Ratio 4.3 L Glucose 82 POC Glucose (mg/dL) 123 H Calcium 9.0 Total Bilirubin AST ALT Alkaline Phosphatase Ammonia Total Protein Albumin Globulin Albumin/Globulin Ratio Vitamin B12 [facility] 09/21/16 09/21/16 09/21/16 07:23 11:55 15:49 WBC RBC Hgb Hct MCV MCH MCHC RDW Plt Count MPV Neut % (Auto) Lymph % (Auto) Lewis % (Auto) Eos % (Auto) Baso % (Auto) Absolute Neuts (auto) Absolute Lymphs (auto) Absolute Monos (auto) Absolute Eos (auto) Absolute Basos (auto) Absolute Nucleated RBC Nucleated RBC % Sodium Potassium Chloride Carbon Dioxide Anion Gap BUN Creatinine Est GFR ( Amer) Est GFR (Non-Af Amer) BUN/Creatinine Ratio Glucose POC Glucose (mg/dL) 104 143 H Calcium Total Bilirubin AST ALT Alkaline Phosphatase Ammonia 39 Total Protein Albumin Globulin Albumin/Globulin Ratio Vitamin B12 [facility] 09/21/16 09/21/16 09/21/16 15:49 17:36 21:58 WBC RBC Hgb Hct MCV MCH MCHC RDW Plt Count MPV Neut % (Auto) Lymph % (Auto) Lewis % (Auto) Eos % (Auto) Baso % (Auto) Absolute Neuts (auto) Absolute Lymphs (auto) Absolute Monos (auto) Absolute Eos (auto) Absolute Basos (auto) Absolute Nucleated RBC Nucleated RBC % Sodium Potassium Chloride Carbon Dioxide Anion Gap BUN Creatinine Est GFR ( Amer) Est GFR (Non-Af Amer) BUN/Creatinine Ratio Glucose POC Glucose (mg/dL) 134 H 125 H Calcium Total Bilirubin AST ALT Alkaline Phosphatase Ammonia Total Protein Albumin Globulin Albumin/Globulin Ratio Vitamin B12 670 TSH 2.29 09/22/16 09/22/16 09/22/16 08:10 11:50 17:04 WBC RBC Hgb Hct MCV MCH MCHC RDW Plt Count MPV Neut % (Auto) Lymph % (Auto) Lewis % (Auto) Eos % (Auto) Baso % (Auto) Absolute Neuts (auto) Absolute Lymphs (auto) Absolute Monos (auto) Absolute Eos (auto) Absolute Basos (auto) Absolute Nucleated RBC Nucleated RBC % Sodium Potassium Chloride Carbon Dioxide Anion Gap BUN Creatinine Est GFR ( Amer) Est GFR (Non-Af Amer) BUN/Creatinine Ratio Glucose POC Glucose (mg/dL) 115 H 128 H 138 H Calcium Total Bilirubin AST ALT Alkaline Phosphatase Ammonia Total Protein Albumin Globulin Albumin/Globulin Ratio Vitamin B12 [facility] 09/22/16 09/23/16 09/23/16 20:35 07:32 11:53 WBC RBC Hgb Hct MCV MCH MCHC RDW Plt Count MPV Neut % (Auto) Lymph % (Auto) Lewis % (Auto) Eos % (Auto) Baso % (Auto) Absolute Neuts (auto) Absolute Lymphs (auto) Absolute Monos (auto) Absolute Eos (auto) Absolute Basos (auto) Absolute Nucleated RBC Nucleated RBC % Sodium Potassium Chloride Carbon Dioxide Anion Gap BUN Creatinine Est GFR ( Amer) Est GFR (Non-Af Amer) BUN/Creatinine Ratio Glucose POC Glucose (mg/dL) 123 H 90 140 H Calcium Total Bilirubin AST ALT Alkaline Phosphatase Ammonia Total Protein Albumin Globulin Albumin/Globulin Ratio Vitamin B12 TSH 09/23/16 09/23/16 09/24/16 16:31 21:33 07:52 WBC RBC Hgb Hct MCV MCH MCHC RDW Plt Count MPV Neut % (Auto) Lymph % (Auto) Lewis % (Auto) Eos % (Auto) Baso % (Auto) Absolute Neuts (auto) Absolute Lymphs (auto) Absolute Monos (auto) Absolute Eos (auto) Absolute Basos (auto) Absolute Nucleated RBC Nucleated RBC % Sodium Potassium Chloride Carbon Dioxide Anion Gap BUN Creatinine Est GFR ( Amer) Est GFR (Non-Af Amer) BUN/Creatinine Ratio Glucose POC Glucose (mg/dL) 114 H 149 H 121 H Calcium Total Bilirubin AST ALT Alkaline Phosphatase Ammonia Total Protein Albumin Globulin Albumin/Globulin Ratio Vitamin B12 TSH 09/24/16 09/24/16 09/24/16 12:13 17:17 21:51 WBC RBC Hgb Hct MCV MCH MCHC RDW Plt Count MPV Neut % (Auto) Lymph % (Auto) Lewis % (Auto) Eos % (Auto) Baso % (Auto) Absolute Neuts (auto) Absolute Lymphs (auto) Absolute Monos (auto) Absolute Eos (auto) Absolute Basos (auto) Absolute Nucleated RBC Nucleated RBC % Sodium Potassium Chloride Carbon Dioxide Anion Gap BUN Creatinine Est GFR ( Amer) Est GFR (Non-Af Amer) BUN/Creatinine Ratio Glucose POC Glucose (mg/dL) 118 H 97 134 H Calcium Total Bilirubin AST ALT Alkaline Phosphatase Ammonia Total Protein Albumin Globulin Albumin/Globulin Ratio Vitamin B12 TSH 09/25/16 09/25/16 07:44 12:07 WBC RBC Hgb Hct MCV MCH MCHC RDW Plt Count MPV Neut % (Auto) Lymph % (Auto) Lewis % (Auto) Eos % (Auto) Baso % (Auto) Absolute Neuts (auto) Absolute Lymphs (auto) Absolute Monos (auto) Absolute Eos (auto) Absolute Basos (auto) Absolute Nucleated RBC Nucleated RBC % Sodium Potassium Chloride Carbon Dioxide Anion Gap BUN Creatinine Est GFR ( Amer) Est GFR (Non-Af Amer) BUN/Creatinine Ratio Glucose POC Glucose (mg/dL) 113 H 109 H Calcium Total Bilirubin AST ALT Alkaline Phosphatase Ammonia Total Protein Albumin Globulin Albumin/Globulin Ratio Vitamin B12 TSH Exam Appearance: Thin Framed Hygiene: Normal Grooming: Well Kept Psychomotor Activities: Normal Exhibits Abnormal Movement: No Attitude and Relatedness: Cooperative Eye Contact: Good - Speech Quality: Unpressured Latencies: Normal Quantity: Appropriate Patient's Decription of Mood: "Okay" Observed Affect: Fair Affect Consistent with: Dysphoria Patient's Thought Process: Coherent Thought Content: No Passive Wish, No Suicidal Planning, No Homicidal Ideation, No Paranoid Ideation Experiencing Hallucinations: No, Sensorium is Clear Type of Hallucinations: Visual: No, Auditory: No, Command: No Level of Consciousness: Alert Orientation: Yes Intact, Yes Orientated to Time, Yes Orientated to Place, Yes Orientated to Person Impulse Control: Intact Insight and Judgement: Good Impression - Impression Clinical Impression: Major Depressive DO, single episode, severe without psychotic features Merits Inpatient Hospitalization: No Problem List - MHU Problems Type of Problem: Mood Status of Problem: Active Plan - Treatment Plan Treatment Plan: Will continue citalopram 10mg PO qday. D/C pending to SNF. Follow up with gerontology. Continued Medication Management: Start Medication Medications: Current Medications Acetaminophen (Tylenol Tab*) 650 mg PO Q6H PRN PRN Reason: PAIN Last Admin: 09/24/16 21:57 Dose: 650 mg Amlodipine Besylate (Norvasc Tab*) 5 mg PO BEDTIME [facility] Last Admin: 09/24/16 21:56 Dose: 5 mg Aspirin (Aspirin Low Dose Tab*) 81 mg PO DAILY [facility] Last Admin: 09/25/16 09:05 Dose: 81 mg Citalopram Hydrobromide (Celexa Tab*) 10 mg PO DAILY [facility] Last Admin: 09/25/16 09:05 Dose: 10 mg Dextrose (D50w Syringe 50 Ml*) 12.5 gm IV PUSH .FOR FS < 60 - SS PRN PRN Reason: FS < 60 Docusate Sodium (Colace Cap*) 100 mg PO BID PRN PRN Reason: CONSTIPATION Last Admin: 09/23/16 21:43 Dose: 100 mg Heparin Sodium (Porcine) (Heparin Vial(*)) 5,000 units SUBCUT Q8HR [facility] Last Admin: 09/25/16 05:52 Dose: 5,000 units Insulin Human Lispro (Humalog*) 0 units SUBCUT AC [facility] PRN Reason: Protocol Last Admin: 09/25/16 12:20 Dose: Not Given Metoprolol Succinate (Toprol Xl Tab*) 25 mg PO DAILY [facility] Last Admin: 09/25/16 09:05 Dose: 25 mg Omeprazole (Prilosec Cap*) 20 mg PO BID [facility] Last Admin: 09/25/16 09:05 Dose: 20 mg Polyethylene Glycol/Electrolytes (Miralax*) 17 gm PO DAILY PRN PRN Reason: CONSTIPATION Last Admin: 09/23/16 09:02 Dose: 17 gm Senna (Senokot Tab*) 2 tab PO BEDTIME PRN PRN Reason: CONSTIPATION Sevelamer Carbonate (Renvela Tab*) 3,200 mg PO TID WITH MEALS [facility] Last Admin: 09/25/16 12:30 Dose: 3,200 mg - Discharge Plan Discharge Plan: Outpatient Follow Up
--- NOTE | 2016-09-25 18:32 | PN ---
Subjective Date of Service: 09/25/16 Interval History: Seen during dialysis Feeling upbeat Has no complaints today Family History: Unchanged from Admission Social History: Unchanged from Admission Past Medical History: Unchanged from Admission Objective Active Medications: Acetaminophen (Tylenol Tab*) 650 mg PO Q6H PRN PRN Reason: PAIN Last Admin: 09/24/16 21:57 Dose: 650 mg Amlodipine Besylate (Norvasc Tab*) 5 mg PO BEDTIME [facility] Last Admin: 09/24/16 21:56 Dose: 5 mg Aspirin (Aspirin Low Dose Tab*) 81 mg PO DAILY [facility] Last Admin: 09/25/16 09:05 Dose: 81 mg Citalopram Hydrobromide (Celexa Tab*) 10 mg PO DAILY [facility] Last Admin: 09/25/16 09:05 Dose: 10 mg Dextrose (D50w Syringe 50 Ml*) 12.5 gm IV PUSH .FOR FS < 60 - SS PRN PRN Reason: FS < 60 Docusate Sodium (Colace Cap*) 100 mg PO BID PRN PRN Reason: CONSTIPATION Last Admin: 09/23/16 21:43 Dose: 100 mg Heparin Sodium (Porcine) (Heparin Vial(*)) 5,000 units SUBCUT Q8HR [facility] Last Admin: 09/25/16 14:44 Dose: 5,000 units Insulin Human Lispro (Humalog*) 0 units SUBCUT AC [facility] PRN Reason: Protocol Last Admin: 09/25/16 17:38 Dose: Not Given Metoprolol Succinate (Toprol Xl Tab*) 25 mg PO DAILY [facility] Last Admin: 09/25/16 09:05 Dose: 25 mg Omeprazole (Prilosec Cap*) 20 mg PO BID [facility] Last Admin: 09/25/16 09:05 Dose: 20 mg Polyethylene Glycol/Electrolytes (Miralax*) 17 gm PO DAILY PRN PRN Reason: CONSTIPATION Last Admin: 09/23/16 09:02 Dose: 17 gm Senna (Senokot Tab*) 2 tab PO BEDTIME PRN PRN Reason: CONSTIPATION Sevelamer Carbonate (Renvela Tab*) 3,200 mg PO TID WITH MEALS [facility] Last Admin: 09/25/16 17:39 Dose: 3,200 mg Vital Signs 09/24/16 09/24/16 09/25/16 20:00 23:49 08:00 Temperature 97.1 F Pulse Rate 68 Respiratory 18 16 16 Rate Blood Pressure 152/65 (mmHg) O2 Sat by Pulse 96 Oximetry 09/25/16 09/25/16 08:05 15:48 Temperature 97.6 F 97.7 F Pulse Rate 65 75 Respiratory 16 16 Rate Blood Pressure 155/74 147/66 (mmHg) O2 Sat by Pulse 99 97 Oximetry Oxygen Devices in Use Now: None Appearance: NAD Eyes: No Scleral Icterus, PERRLA Ears/Nose/Mouth/Throat: Clear Oropharnyx, Mucous Membranes Moist Neck: NL Appearance and Movements; NL JVP, Trachea Midline Respiratory: Symmetrical Chest Expansion and Respiratory Effort, Clear to Auscultation Cardiovascular: NL Sounds; No Murmurs; No JVD, RRR Abdominal: NL Sounds; No Tenderness; No Distention, No Hepatosplenomegaly Lymphatic: No Cervical Adenopathy Extremities: No Edema, No Clubbing, Cyanosis Neurological: Alert and Oriented x 3 Result Diagrams: 09/21/16 06:30 09/21/16 06:30 Assess/Plan/Problems-Billing Assessment: Ms. Roche is a 76 yo female with PMH significant for renal failure - on hemodialysis, DM, HTN and GERD who presented to the emergency room with complaints of falling at home d/t right knee weakness. - Patient Problems (1) Depression Comment: Appreciate psych consult started on celexa depression improved. Denies SI (2) Confusion Comment: Resolved, no recurrence. Normal TSH, B12, ammonia. Possibly in setting of depression (3) ESRD (end stage renal disease) Comment: on HD MWF. Continue renvela (changed to accurate dose) (4) Diabetes Comment: - Continue Lispro SS (5) GERD (gastroesophageal reflux disease) Comment: - Continue Omeprazole (6) HTN (hypertension) Comment: - Continue amlodipine and metoprolol (7) DVT prophylaxis Comment: HSQ Status and Disposition: Inpatient. Plan for discharge to a group home facility.
[2016-09-25] MEDS: amLODIPine TAB* 5 MG PO SCH (21:51)
[2016-09-26] MEDS: Acetaminophen TAB* 325 MG PO PRN ×2 (03:32→17:34)
[2016-09-26] MEDS: Heparin VIAL(*) 5000 UNITS/ML VIAL (FIVE THOUSAND) SUBCUT SCH ×3 (05:27→21:11)
[2016-09-26] MEDS: Insulin LISPRO* 1 UNITS UNIT SUBCUT SCH ×3 (08:15→17:07)
[2016-09-26] MEDS: Sevelamer TAB* 800 MG PO SCH ×3 (08:55→21:14)
[2016-09-26] MEDS: Metoprolol Succinate XL TAB* 25 MG PO SCH (08:57)
[2016-09-26] MEDS: Aspirin Low Dose CHEW TAB* 81 MG PO SCH (08:57)
[2016-09-26] MEDS: Omeprazole CAP* 20 MG PO SCH ×2 (08:57→21:09)
[2016-09-26] MEDS: Citalopram TAB* 10 MG PO SCH (08:57)
--- NOTE | 2016-09-26 15:55 | PN ---
Subjective Date of Service: 09/26/16 Interval History: Upbeat, no complaints. Anxious for decision regarding insurance appeal Family History: Unchanged from Admission Social History: Unchanged from Admission Past Medical History: Unchanged from Admission Objective Active Medications: Acetaminophen (Tylenol Tab*) 650 mg PO Q6H PRN PRN Reason: PAIN Last Admin: 09/26/16 03:32 Dose: 650 mg Amlodipine Besylate (Norvasc Tab*) 5 mg PO BEDTIME [facility] Last Admin: 09/25/16 21:51 Dose: 5 mg Aspirin (Aspirin Low Dose Tab*) 81 mg PO DAILY [facility] Last Admin: 09/26/16 08:57 Dose: 81 mg Citalopram Hydrobromide (Celexa Tab*) 10 mg PO DAILY [facility] Last Admin: 09/26/16 08:57 Dose: 10 mg Dextrose (D50w Syringe 50 Ml*) 12.5 gm IV PUSH .FOR FS < 60 - SS PRN PRN Reason: FS < 60 Docusate Sodium (Colace Cap*) 100 mg PO BID PRN PRN Reason: CONSTIPATION Last Admin: 09/23/16 21:43 Dose: 100 mg Heparin Sodium (Porcine) (Heparin Vial(*)) 5,000 units SUBCUT Q8HR [facility] Last Admin: 09/26/16 13:06 Dose: 5,000 units Insulin Human Lispro (Humalog*) 0 units SUBCUT AC [facility] PRN Reason: Protocol Last Admin: 09/26/16 13:07 Dose: 2 units Metoprolol Succinate (Toprol Xl Tab*) 25 mg PO DAILY [facility] Last Admin: 09/26/16 08:57 Dose: 25 mg Omeprazole (Prilosec Cap*) 20 mg PO BID [facility] Last Admin: 09/26/16 08:57 Dose: 20 mg Polyethylene Glycol/Electrolytes (Miralax*) 17 gm PO DAILY PRN PRN Reason: CONSTIPATION Last Admin: 09/23/16 09:02 Dose: 17 gm Senna (Senokot Tab*) 2 tab PO BEDTIME PRN PRN Reason: CONSTIPATION Sevelamer Carbonate (Renvela Tab*) 3,200 mg PO TID WITH MEALS [facility] Last Admin: 09/26/16 13:05 Dose: 3,200 mg Vital Signs 09/25/16 09/25/16 09/26/16 23:30 23:36 07:54 Temperature 97.8 F 97.9 F Pulse Rate 73 72 Respiratory 16 16 14 Rate Blood Pressure 150/63 159/65 (mmHg) O2 Sat by Pulse 100 97 Oximetry 09/26/16 08:00 Temperature Pulse Rate Respiratory 16 Rate Blood Pressure (mmHg) O2 Sat by Pulse Oximetry Oxygen Devices in Use Now: None Appearance: NAD Eyes: No Scleral Icterus Ears/Nose/Mouth/Throat: NL Teeth, Lips, Gums, Clear Oropharnyx Neck: NL Appearance and Movements; NL JVP, Trachea Midline Respiratory: Symmetrical Chest Expansion and Respiratory Effort, Clear to Auscultation Cardiovascular: RRR, - - 2/6 TIMOTHY Abdominal: NL Sounds; No Tenderness; No Distention Lymphatic: No Cervical Adenopathy Extremities: No Edema Skin: No Rash or Ulcers Neurological: Alert and Oriented x 3 Result Diagrams: 09/21/16 06:30 09/21/16 06:30 Assess/Plan/Problems-Billing Assessment: Ms. Roche is a 76 yo female with PMH significant for renal failure - on hemodialysis, DM, HTN and GERD who presented to the emergency room with complaints of falling at home d/t right knee weakness. - Patient Problems (1) Depression Comment: Appreciate psych consult started on celexa depression improved. Denies SI (2) Confusion Comment: Resolved, no recurrence. Normal TSH, B12, ammonia. Possibly in setting of depression (3) ESRD (end stage renal disease) Comment: on HD MWF. Continue renvela (changed to accurate dose) (4) Diabetes Comment: - Continue Lispro SS (5) GERD (gastroesophageal reflux disease) Comment: - Continue Omeprazole (6) HTN (hypertension) Comment: Increase norvasc from 5 to 10mg 2/7 c/w metoprolol (7) DVT prophylaxis Comment: HSQ Status and Disposition: Inpatient. Plan for discharge to a fdc facility.
[2016-09-26] MEDS ORDERED: amLODIPine TAB* 5 MG PO SCH (21:00)
[2016-09-27] MEDS: Heparin VIAL(*) 5000 UNITS/ML VIAL (FIVE THOUSAND) SUBCUT SCH (05:47)
[2016-09-27 07:53] VITALS: BP 153/62
[2016-09-27] MEDS: Insulin LISPRO* 1 UNITS UNIT SUBCUT SCH ×2 (07:53→11:48)
[2016-09-27] MEDS: Sevelamer TAB* 800 MG PO SCH ×2 (08:50→12:44)
[2016-09-27] MEDS: Aspirin Low Dose CHEW TAB* 81 MG PO SCH (12:44)
[2016-09-27] MEDS: Metoprolol Succinate XL TAB* 25 MG PO SCH (12:44)
[2016-09-27] MEDS: Citalopram TAB* 10 MG PO SCH (12:44)
[2016-09-27] MEDS: Omeprazole CAP* 20 MG PO SCH (12:44)
--- NOTE | 2016-09-27 12:47 | DS ---
DATE OF ADMISSION: 09/19/2016. DATE OF DISCHARGE: 09/27/2016. PRIMARY CARE PROVIDER: Dr. Urbina. PRIMARY DIAGNOSIS: Weakness. SECONDARY DIAGNOSES: 1. Depression. 2. End-stage renal disease, on hemodialysis. 3. Hypertension. 4. GERD. MEDICATIONS ON DISCHARGE: 1. Renvela 3200 mg three times a day. 2. Prilosec 20 mg twice a day. 3. Metoprolol succinate XL 25 mg daily. 4. Aspirin 81 mg daily. 5. Amlodipine 10 mg at bedtime. 6. Senna two tabs at bedtime as needed for constipation. 7. Docusate 100 mg twice daily as needed for constipation. 8. Celexa 10 mg daily. DIET ON DISCHARGE: Dialysis diet. HISTORY OF PRESENT ILLNESS AND HOSPITAL COURSE: This is a 76-year-old female with a past medical history as outlined in the history of present illness on the day of admission by Ivonne Altamirano NP, who was transferred from [place] after initial presentation of recurrent falls at home. She had extensive imaging done with no abnormalities noted. She was transferred to [facility]; she is a chronic dialysis patient and that service was not offered at [facility]. After evaluation by Physical Therapy, it was thought that she would benefit from continued therapy at a rehabilitation facility. She was planned for transfer to [facility], however was forced to appeal insurance decision to deny, which was ultimately approved. During the course of the hospital, she did indicate depression and was seen in consultation by Psychiatry who recommended starting Celexa. The patient's depression did improve during the course of the hospital stay as her discharge date approached. This is unclear if this is secondary to the rapid onset benefit from Celexa or her improvement related to her disposition status. She should keep her follow-up appointment with Dr. Terrell of Orthopedics. Greater than 30 minutes were spent in the discharge of this patient with greater than half spent [id number] with the patient. CC: Dr. Urbina * [id number]/[facility] #: [id number] [facility]
--- NOTE | 2016-09-27 13:43 | CONSULT ---
Identification - Patient Identification Reason for Psychiatric Consultation: Suicidal Ideation -: Patient is a 76 year old, F admitted on 09/19/16. - MHU Identification Employment Status: Disabled Hx Psychiatric Hospitalization: No History - Objective HPI: The patient was found again today in the dialysis room. Her affect appears bright and she welcomes me effusively, stating "Guess what Doctor? I'm getting out of here today!" She feels the citalopram is agreeing with her and endorses euthymic mood and continues to deny any suicidal thoughts, plans or intentions since our previous meeting. My understanding is that she is being discharged to [facility] later today. She is agreeable with continuing the citalopram. Lab Results: Laboratory Tests 09/19/16 09/19/16 09/19/16 13:03 13:28 16:48 WBC RBC Hgb Hct MCV MCH MCHC RDW Plt Count MPV Neut % (Auto) Lymph % (Auto) [place] % (Auto) Eos % (Auto) Baso % (Auto) Absolute Neuts (auto) Absolute Lymphs (auto) Absolute Monos (auto) Absolute Eos (auto) Absolute Basos (auto) Absolute Nucleated RBC Nucleated RBC % Sodium 134 Potassium 3.6 Chloride 99 L Carbon Dioxide 29 Anion Gap 6 BUN 28 H Creatinine 5.46 H Est GFR ( Amer) 9.8 Est GFR (Non-Af Amer) 7.6 BUN/Creatinine Ratio 5.1 L Glucose 84 POC Glucose (mg/dL) 103 138 H Calcium 9.8 Total Bilirubin 0.50 AST 9 L ALT 3 L Alkaline Phosphatase 58 Ammonia Total Protein 6.8 Albumin 3.5 Globulin 3.3 Albumin/Globulin Ratio 1.1 Vitamin B12 TSH 09/19/16 09/20/16 09/20/16 21:25 05:13 05:13 WBC 2.8 L RBC 4.09 Hgb 10.9 L Hct 35 MCV 84 MCH 27 MCHC 32 RDW 17 H Plt Count 158 MPV 8 Neut % (Auto) 56.5 Lymph % (Auto) 23.3 L [place] % (Auto) 11.0 H Eos % (Auto) 5.9 Baso % (Auto) 3.3 H Absolute Neuts (auto) 1.6 Absolute Lymphs (auto) 0.6 L Absolute Monos (auto) 0.3 Absolute Eos (auto) 0.2 Absolute Basos (auto) 0.1 Absolute Nucleated RBC 0 Nucleated RBC % 0.1 Sodium 131 L Potassium 4.3 Chloride 97 L Carbon Dioxide 28 Anion Gap 6 BUN 37 H Creatinine 6.63 H Est GFR ( Amer) 7.8 Est GFR (Non-Af Amer) 6.1 BUN/Creatinine Ratio 5.6 L Glucose 117 H POC Glucose (mg/dL) 199 H Calcium 9.6 Total Bilirubin AST ALT Alkaline Phosphatase Ammonia Total Protein Albumin Globulin Albumin/Globulin Ratio Vitamin B12 [facility] 09/20/16 09/20/16 09/20/16 08:01 11:44 16:46 WBC RBC Hgb Hct MCV MCH MCHC RDW Plt Count MPV Neut % (Auto) Lymph % (Auto) [place] % (Auto) Eos % (Auto) Baso % (Auto) Absolute Neuts (auto) Absolute Lymphs (auto) Absolute Monos (auto) Absolute Eos (auto) Absolute Basos (auto) Absolute Nucleated RBC Nucleated RBC % Sodium Potassium Chloride Carbon Dioxide Anion Gap BUN Creatinine Est GFR ( Amer) Est GFR (Non-Af Amer) BUN/Creatinine Ratio Glucose POC Glucose (mg/dL) 128 H 168 H 129 H Calcium Total Bilirubin AST ALT Alkaline Phosphatase Ammonia Total Protein Albumin Globulin Albumin/Globulin Ratio Vitamin B12 [facility] 09/20/16 09/21/16 09/21/16 22:13 06:30 06:30 WBC 3.0 L RBC 3.84 L Hgb 10.3 L Hct 33 L MCV 85 MCH 27 MCHC 32 RDW 17 H Plt Count 148 L MPV 8 Neut % (Auto) 51.2 Lymph % (Auto) 29.3 [place] % (Auto) 12.0 H Eos % (Auto) 5.2 Baso % (Auto) 2.3 H Absolute Neuts (auto) 1.5 Absolute Lymphs (auto) 0.9 L Absolute Monos (auto) 0.4 Absolute Eos (auto) 0.2 Absolute Basos (auto) 0.1 Absolute Nucleated RBC 0 Nucleated RBC % 0 Sodium 129 L Potassium 4.4 Chloride 102 Carbon Dioxide 21 L Anion Gap 6 BUN 18 Creatinine 4.21 H Est GFR ( Amer) 13.2 Est GFR (Non-Af Amer) 10.3 BUN/Creatinine Ratio 4.3 L Glucose 82 POC Glucose (mg/dL) 123 H Calcium 9.0 Total Bilirubin AST ALT Alkaline Phosphatase Ammonia Total Protein Albumin Globulin Albumin/Globulin Ratio Vitamin B12 [facility] 09/21/16 09/21/16 09/21/16 07:23 11:55 15:49 WBC RBC Hgb Hct MCV MCH MCHC RDW Plt Count MPV Neut % (Auto) Lymph % (Auto) [place] % (Auto) Eos % (Auto) Baso % (Auto) Absolute Neuts (auto) Absolute Lymphs (auto) Absolute Monos (auto) Absolute Eos (auto) Absolute Basos (auto) Absolute Nucleated RBC Nucleated RBC % Sodium Potassium Chloride Carbon Dioxide Anion Gap BUN Creatinine Est GFR ( Amer) Est GFR (Non-Af Amer) BUN/Creatinine Ratio Glucose POC Glucose (mg/dL) 104 143 H Calcium Total Bilirubin AST ALT Alkaline Phosphatase Ammonia 39 Total Protein Albumin Globulin Albumin/Globulin Ratio Vitamin B12 TSH 09/21/16 09/21/16 09/21/16 15:49 17:36 21:58 WBC RBC Hgb Hct MCV MCH MCHC RDW Plt Count MPV Neut % (Auto) Lymph % (Auto) [place] % (Auto) Eos % (Auto) Baso % (Auto) Absolute Neuts (auto) Absolute Lymphs (auto) Absolute Monos (auto) Absolute Eos (auto) Absolute Basos (auto) Absolute Nucleated RBC Nucleated RBC % Sodium Potassium Chloride Carbon Dioxide Anion Gap BUN Creatinine Est GFR ( Amer) Est GFR (Non-Af Amer) BUN/Creatinine Ratio Glucose POC Glucose (mg/dL) 134 H 125 H Calcium Total Bilirubin AST ALT Alkaline Phosphatase Ammonia Total Protein Albumin Globulin Albumin/Globulin Ratio Vitamin B12 670 TSH 2.29 09/22/16 09/22/16 09/22/16 08:10 11:50 17:04 WBC RBC Hgb Hct MCV MCH MCHC RDW Plt Count MPV Neut % (Auto) Lymph % (Auto) [place] % (Auto) Eos % (Auto) Baso % (Auto) Absolute Neuts (auto) Absolute Lymphs (auto) Absolute Monos (auto) Absolute Eos (auto) Absolute Basos (auto) Absolute Nucleated RBC Nucleated RBC % Sodium Potassium Chloride Carbon Dioxide Anion Gap BUN Creatinine Est GFR ( Amer) Est GFR (Non-Af Amer) BUN/Creatinine Ratio Glucose POC Glucose (mg/dL) 115 H 128 H 138 H Calcium Total Bilirubin AST ALT Alkaline Phosphatase Ammonia Total Protein Albumin Globulin Albumin/Globulin Ratio Vitamin B12 TSH 09/22/16 09/23/16 09/23/16 20:35 07:32 11:53 WBC RBC Hgb Hct MCV MCH MCHC RDW Plt Count MPV Neut % (Auto) Lymph % (Auto) [place] % (Auto) Eos % (Auto) Baso % (Auto) Absolute Neuts (auto) Absolute Lymphs (auto) Absolute Monos (auto) Absolute Eos (auto) Absolute Basos (auto) Absolute Nucleated RBC Nucleated RBC % Sodium Potassium Chloride Carbon Dioxide Anion Gap BUN Creatinine Est GFR ( Amer) Est GFR (Non-Af Amer) BUN/Creatinine Ratio Glucose POC Glucose (mg/dL) 123 H 90 140 H Calcium Total Bilirubin AST ALT Alkaline Phosphatase Ammonia Total Protein Albumin Globulin Albumin/Globulin Ratio Vitamin B12 [facility] 09/23/16 09/23/16 09/24/16 16:31 21:33 07:52 WBC RBC Hgb Hct MCV MCH MCHC RDW Plt Count MPV Neut % (Auto) Lymph % (Auto) [place] % (Auto) Eos % (Auto) Baso % (Auto) Absolute Neuts (auto) Absolute Lymphs (auto) Absolute Monos (auto) Absolute Eos (auto) Absolute Basos (auto) Absolute Nucleated RBC Nucleated RBC % Sodium Potassium Chloride Carbon Dioxide Anion Gap BUN Creatinine Est GFR ( Amer) Est GFR (Non-Af Amer) BUN/Creatinine Ratio Glucose POC Glucose (mg/dL) 114 H 149 H 121 H Calcium Total Bilirubin AST ALT Alkaline Phosphatase Ammonia Total Protein Albumin Globulin Albumin/Globulin Ratio Vitamin B12 [facility] 09/24/16 09/24/16 09/24/16 12:13 17:17 21:51 WBC RBC Hgb Hct MCV MCH MCHC RDW Plt Count MPV Neut % (Auto) Lymph % (Auto) [place] % (Auto) Eos % (Auto) Baso % (Auto) Absolute Neuts (auto) Absolute Lymphs (auto) Absolute Monos (auto) Absolute Eos (auto) Absolute Basos (auto) Absolute Nucleated RBC Nucleated RBC % Sodium Potassium Chloride Carbon Dioxide Anion Gap BUN Creatinine Est GFR ( Amer) Est GFR (Non-Af Amer) BUN/Creatinine Ratio Glucose POC Glucose (mg/dL) 118 H 97 134 H Calcium Total Bilirubin AST ALT Alkaline Phosphatase Ammonia Total Protein Albumin Globulin Albumin/Globulin Ratio Vitamin B12 [facility] 09/25/16 09/25/16 09/25/16 07:44 12:07 17:16 WBC RBC Hgb Hct MCV MCH MCHC RDW Plt Count MPV Neut % (Auto) Lymph % (Auto) [place] % (Auto) Eos % (Auto) Baso % (Auto) Absolute Neuts (auto) Absolute Lymphs (auto) Absolute Monos (auto) Absolute Eos (auto) Absolute Basos (auto) Absolute Nucleated RBC Nucleated RBC % Sodium Potassium Chloride Carbon Dioxide Anion Gap BUN Creatinine Est GFR ( Amer) Est GFR (Non-Af Amer) BUN/Creatinine Ratio Glucose POC Glucose (mg/dL) 113 H 109 H 108 H Calcium Total Bilirubin AST ALT Alkaline Phosphatase Ammonia Total Protein Albumin Globulin Albumin/Globulin Ratio Vitamin B12 TSH 09/25/16 09/26/16 09/26/16 21:21 08:10 12:25 WBC RBC Hgb Hct MCV MCH MCHC RDW Plt Count MPV Neut % (Auto) Lymph % (Auto) [place] % (Auto) Eos % (Auto) Baso % (Auto) Absolute Neuts (auto) Absolute Lymphs (auto) Absolute Monos (auto) Absolute Eos (auto) Absolute Basos (auto) Absolute Nucleated RBC Nucleated RBC % Sodium Potassium Chloride Carbon Dioxide Anion Gap BUN Creatinine Est GFR ( Amer) Est GFR (Non-Af Amer) BUN/Creatinine Ratio Glucose POC Glucose (mg/dL) 131 H 107 H 155 H Calcium Total Bilirubin AST ALT Alkaline Phosphatase Ammonia Total Protein Albumin Globulin Albumin/Globulin Ratio Vitamin B12 [facility] 09/26/16 09/26/16 09/27/16 17:05 21:25 07:49 WBC RBC Hgb Hct MCV MCH MCHC RDW Plt Count MPV Neut % (Auto) Lymph % (Auto) [place] % (Auto) Eos % (Auto) Baso % (Auto) Absolute Neuts (auto) Absolute Lymphs (auto) Absolute Monos (auto) Absolute Eos (auto) Absolute Basos (auto) Absolute Nucleated RBC Nucleated RBC % Sodium Potassium Chloride Carbon Dioxide Anion Gap BUN Creatinine Est GFR ( Amer) Est GFR (Non-Af Amer) BUN/Creatinine Ratio Glucose POC Glucose (mg/dL) 130 H 124 H 101 Calcium Total Bilirubin AST ALT Alkaline Phosphatase Ammonia Total Protein Albumin Globulin Albumin/Globulin Ratio Vitamin B12 TSH 09/27/16 11:46 WBC RBC Hgb Hct MCV MCH MCHC RDW Plt Count MPV Neut % (Auto) Lymph % (Auto) [place] % (Auto) Eos % (Auto) Baso % (Auto) Absolute Neuts (auto) Absolute Lymphs (auto) Absolute Monos (auto) Absolute Eos (auto) Absolute Basos (auto) Absolute Nucleated RBC Nucleated RBC % Sodium Potassium Chloride Carbon Dioxide Anion Gap BUN Creatinine Est GFR ( Amer) Est GFR (Non-Af Amer) BUN/Creatinine Ratio Glucose POC Glucose (mg/dL) 113 H Calcium Total Bilirubin AST ALT Alkaline Phosphatase Ammonia Total Protein Albumin Globulin Albumin/Globulin Ratio Vitamin B12 TSH Exam Appearance: Thin Framed Hygiene: Normal Grooming: Well Kept Psychomotor Activities: Normal Exhibits Abnormal Movement: No Attitude and Relatedness: Cooperative Eye Contact: Good - Speech Quality: Unpressured Latencies: Normal Quantity: Appropriate Patient's Decription of Mood: "Great" Observed Affect: Fair Affect Consistent with: Euthymia Patient's Thought Process: Coherent Thought Content: No Passive Wish, No Suicidal Planning, No Homicidal Ideation, No Paranoid Ideation Experiencing Hallucinations: No, Sensorium is Clear Type of Hallucinations: Visual: No, Auditory: No, Command: No Level of Consciousness: Alert Orientation: Yes Intact, Yes Orientated to Time, Yes Orientated to Place, Yes Orientated to Person Impulse Control: Intact Insight and Judgement: Good Impression - Impression 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 D/C pending to SNF. Follow up with gerontology. Medications: Current Medications Acetaminophen (Tylenol Tab*) 650 mg PO Q6H PRN PRN Reason: PAIN Last Admin: 09/26/16 17:34 Dose: 650 mg Amlodipine Besylate (Norvasc Tab*) 10 mg PO BEDTIME [facility] Last Admin: 09/26/16 21:09 Dose: 10 mg Aspirin (Aspirin Low Dose Tab*) 81 mg PO DAILY [facility] Last Admin: 09/27/16 12:44 Dose: 81 mg Citalopram Hydrobromide (Celexa Tab*) 10 mg PO DAILY [facility] Last Admin: 09/27/16 12:44 Dose: 10 mg Dextrose (D50w Syringe 50 Ml*) 12.5 gm IV PUSH .FOR FS < 60 - SS PRN PRN Reason: FS < 60 Docusate Sodium (Colace Cap*) 100 mg PO BID PRN PRN Reason: CONSTIPATION Last Admin: 09/23/16 21:43 Dose: 100 mg Heparin Sodium (Porcine) (Heparin Vial(*)) 5,000 units SUBCUT Q8HR [facility] Last Admin: 09/27/16 05:47 Dose: 5,000 units Insulin Human Lispro (Humalog*) 0 units SUBCUT AC [facility] PRN Reason: Protocol Last Admin: 09/27/16 11:48 Dose: Not Given Metoprolol Succinate (Toprol Xl Tab*) 25 mg PO DAILY [facility] Last Admin: 09/27/16 12:44 Dose: 25 mg Omeprazole (Prilosec Cap*) 20 mg PO BID [facility] Last Admin: 09/27/16 12:44 Dose: 20 mg Polyethylene Glycol/Electrolytes (Miralax*) 17 gm PO DAILY PRN PRN Reason: CONSTIPATION Last Admin: 09/23/16 09:02 Dose: 17 gm Senna (Senokot Tab*) 2 tab PO BEDTIME PRN PRN Reason: CONSTIPATION Sevelamer Carbonate (Renvela Tab*) 3,200 mg PO TID WITH MEALS [facility] Last Admin: 09/27/16 12:44 Dose: 3,200 mg - Discharge Plan Discharge Plan: Outpatient Follow Up
== END 2016-09-27 13:45 | DRG 861 ==
LOC: MED 11:23
PROVIDERS: ADMIT Hospitalist; ATTEND Internal Medicine
PROC: 5A1D00Z (ICD-10-PCS; principal; 2016-09-20)
DX: R53.1 Weakness (principal); N18.6 End stage renal disease; E11.22 Type 2 diabetes mellitus with diabetic chronic kidney disease; F32.2 Major depressive disorder, single episode, severe without psychotic features; Z88.8 Allergy status to other drugs, medicaments and biological substances; I12.9 Hypertensive chronic kidney disease with stage 1 through stage 4 chronic kidney disease, or unspecified chronic kidney disease; Z99.2 Dependence on renal dialysis; Z91.81 History of falling; M10.9 Gout, unspecified; K21.9 Gastro-esophageal reflux disease without esophagitis; Z87.891 Personal history of nicotine dependence; Z79.82 Long term (current) use of aspirin; Z79.4 Long term (current) use of insulin
CPT/HCPCS: 36415; 80048; 80053; 82140; 82607; 84443; 85025; 90935; A9270-GY; G0257; J1644

== ENCOUNTER 2016-10-08 23:57 | Inpatient (IN) | payer BC, MEDICARE ==
[2016-10-09] MEDS ORDERED: Vancomycin(*) 1,000 MG in NS 0.9% 250 ML* 250 ML IVPB ONE (00:22)
--- NOTE | 2016-10-09 00:30 | ED ---
ravinder Godinez Timothy, scribed for Gaurav Morton MD on 10/09/16 at 0025 . Shortness of Breath - HPI Summary HPI Summary: Nicky Roche is a 76 yo female presenting to [facility] with SOB over the past 2-3 weeks. She has penumonia. She was transferred from [facility] so that she could receive dialysis treatment. Her MHx includes HTN, dialysis, chronic renal failure, DM. - History of Current Complaint Time Seen by Provider: 10/09/16 00:23 Hx Obtained From: Patient Onset/Duration: Gradual Onset, Lasting Weeks, Still Present Timing: Constant Current Severity: Moderate - Allergy/Home Medications Allergies/Adverse Reactions: Allergies Allergy/AdvReac Type Severity Reaction Status Date / Time Allopurinol Allergy Rash Verified 09/19/16 12:39 Indomethacin [From Indocin] Allergy Rash Verified 09/19/16 12:39 Home Medications: Home Medications Acetaminophen TAB* [Tylenol TAB*] 325 mg PO Q4H PRN 10/09/16 [History Confirmed 10/09/16] Citalopram TAB* [CeleXA TAB*] 10 mg PO DAILY 10/09/16 [History Confirmed ] PMH/Surg Hx/FS Hx/Imm Hx Endocrine/Hematology History: Reports: Hx Diabetes Cardiovascular History: Reports: Hx Hypertension History: Reports: Hx Chronic Renal Failure, Hx Dialysis Sensory History: Reports: Hx Contacts or Glasses Opthamlomology History: Reports: Hx Contacts or Glasses - Surgical History Surgery Procedure, Year, and Place: tonsils in childhood - Family History Known Family History: Negative: Cardiac Disease, Hypertension - Social History Alcohol Use: Occasionally Smoking Status (MU): Former Smoker Type: Cigarettes Length of Time of Smoking/Using Tobacco: 2 years Review of Systems Constitutional: Negative Eyes: Negative ENT: Negative Cardiovascular: Negative Positive: Shortness Of Breath Gastrointestinal: Negative Genitourinary: Negative Musculoskeletal: Negative Skin: Negative Neurological: Negative Psychological: Normal All Other Systems Reviewed And Are Negative: Yes Physical Exam Triage Information Reviewed: Yes Vital Signs On Initial Exam: Initial Vitals Temp Pulse Resp BP Pulse Ox 98.6 F 76 18 123/53 96 10/09/16 00:00 10/09/16 00:00 10/09/16 00:00 10/09/16 00:00 10/09/16 00:00 Vital Signs Reviewed: Yes Appearance: Positive: No Pain Distress, Ill-Appearing Skin: Positive: Warm Eyes: Positive: CIERA ENT: Positive: Hearing grossly normal Neck: Positive: Supple Respiratory/Lung Sounds: Positive: Decreased Breath Sounds, Rhonchi - bibasilar Cardiovascular: Positive: RRR Abdomen Description: Positive: Nontender, Soft Musculoskeletal: Positive: Strength/ROM Intact Neurological: Positive: Alert, Oriented to Person Place, Time Diagnostics - Vital Signs Vital Signs Temp Pulse Resp BP Pulse Ox 10/09/16 00:00 98.6 F 76 18 123/53 96 - Laboratory Lab Statement: Any lab studies that have been ordered have been reviewed, and results considered in the medical decision making process. Re-Evaluation - Re-Evaluation First Eval Re-Evaluation Time: 01:37 Change: Unchanged Comment: Pt was counseled to allow a blood draw after refusing it. Course/Dx - Course Assessment/Plan: Disha Roche is a 76 yo female presenting to [facility] with pneumonia and the need for dialysis as a transfer from [facility]. After clinical examination and discussion with Dr. Beltran, she will be admitted to [facility] - Diagnoses Provider Diagnoses: Pneumonia, CRF (chronic renal failure) - Physician Notifications Discussed Care of Patient With: 0022 - Dr. Beltran (hospitalist) - discussed Pt condition, agreed to admit Pt. Instructed by Provider To: Admit As Inpatient Discharge - Discharge Plan Condition: Fair Disposition: ADMITTED TO [facility] The documentation as recorded by the ravinder paul Timothy accurately reflects the service I personally performed and the decisions made by me, Gaurav Morton MD.
[2016-10-09] MEDS ORDERED: Docusate CAP* 100 MG PO PRN (03:39)
[2016-10-09] MEDS ORDERED: Acetaminophen TAB* 325 MG PO PRN (03:39)
[2016-10-09] MEDS ORDERED: Senna TAB PO PRN (03:39)
[2016-10-09] MEDS ORDERED: Acetaminophen SUPP* 650 MG SUPP PR PRN (03:44)
[2016-10-09] MEDS ORDERED: Benzonatate CAP* 100 MG PO PRN (03:44)
[2016-10-09] MEDS ORDERED: Azithromycin IV(*) 500 MG in NS 0.9% 250 ML* 250 ML IVPB SCH (05:00)
[2016-10-09] MEDS: Heparin VIAL(*) 5000 UNITS/ML VIAL (FIVE THOUSAND) SUBCUT SCH ×3 (05:50→21:16)
[2016-10-09] MEDS ORDERED: cefTRIAXone VIAL(*) 1,000 MG in NS 0.9% 50 ML* 50 ML IVPB SCH (06:00)
[2016-10-09] MEDS: Azithromycin IV(*) 500 MG in NS 0.9% 250 ML* 250 ML IVPB SCH (06:06)
[2016-10-09] MEDS: cefTRIAXone VIAL(*) 1,000 MG in NS 0.9% 50 ML* 50 ML IVPB SCH (07:54)
[2016-10-09] MEDS: Sevelamer TAB* 800 MG PO SCH ×3 (09:24→18:03)
[2016-10-09] MEDS: Metoprolol Succinate XL TAB* 25 MG PO SCH (09:24)
[2016-10-09] MEDS: Citalopram TAB* 10 MG PO SCH (09:24)
[2016-10-09] MEDS: CMCS: Pantoprazole TAB (NF) 40 MG TAB PO SCH ×2 (09:26→21:15)
--- NOTE | 2016-10-09 09:52 | HP ---
HISTORY AND PHYSICAL: DATE OF ADMISSION: 10/09/16 PRIMARY CARE PROVIDER: Dr. Sascha Urbina. CHIEF COMPLAINT: Shortness of breath. HISTORY OF PRESENT ILLNESS: The patient is a 76-year-old woman who presented to [facility] with a chief complaint of shortness of breath. She said the shortness of breath started a few weeks ago, but she did not do much about it. Unfortunately for her, it seemed to just get worse and worse. It got to the point where she went to her doctor who apparently evaluated her and sent her to [facility] for admission. She had no cough, no fever, but she did have some wheezing associated with it. Her shortness of breath does not even happen necessarily on exertion, it can happen anytime. It is somewhat worse when she lies down as opposed to sitting up. In the ED at [facility], the patient was evaluated and found to have what appears to be a right-sided pneumonia. PAST MEDICAL HISTORY: Significant for: 1. End-stage renal disease. 2. Hypertension. 3. Depression. 4. GERD. CURRENT MEDICATIONS: 1. Amlodipine 10 mg at bedtime. 2. Renvela 3200 mg 3 times a day. 3. Senna 2 tabs at bedtime as needed. 4. Omeprazole 20 mg twice a day. 5. Metoprolol succinate 25 mg daily. 6. Docusate 100 mg twice a day. 7. Citalopram 10 mg daily. 8. Aspirin 81 mg daily. 9. Tylenol 325 mg every 4 hours as needed. ALLERGIES: She has no known drug allergies. FAMILY HISTORY: Reviewed and noncontributory. SOCIAL HISTORY: The patient does not smoke, drink alcohol, no recreational drug use. She lives in apartments [place] the school. She is with 2 children. Her sons Ed Sanchez and Ayden Sanchez are her healthcare proxies. REVIEW OF SYSTEMS: A 14-point review of systems completed with the patient. All pertinent positives and negatives are in the history of present illness, otherwise is negative. PHYSICAL EXAMINATION GENERAL: A pleasant woman lying in bed, in no acute distress. VITAL SIGNS: Blood pressure 130/63, pulse ox 97%, respiratory rate is 20 breaths per minute, heart rate is 72 beats per minute, temperature 98.6 degrees. HEENT: Normocephalic, atraumatic. Pupils equal, round, and reactive to light. Moist mucous membranes. NECK: Supple. No JVD, bruits, palpable thyroid, or lymphadenopathy. CHEST: She has got some bibasilar rales. CARDIOVASCULAR: S1 and S2 appreciated. Regular rate and rhythm. ABDOMEN: Positive bowel sounds in all 4 quadrants. Soft, nontender, nondistended. EXTREMITIES: No cyanosis, clubbing or edema. She has got an AV fistula in the left arm. NEURO: Alert and oriented x3. Moves all extremities. SKIN: No distinct rash or abnormalities. She has some petechiae in her right lower extremities. DIAGNOSTIC STUDIES/LAB DATA: Sodium 131, potassium is 5.8, chloride 97, CO2 is 26, BUN is 53, creatinine 5.7, glucose is 114. WBC 6.74, hemoglobin 9.6, hematocrit 38.3, platelets are 236. Influenza swab was negative per AMB. Chest x-ray shows right lower lobe pneumonia. ASSESSMENT AND PLAN: 1. Right lower lobe pneumonia. Start the patient on Rocephin 1 g IV daily and Zithromax 500 mg IV daily. Check sputum C and S, urine for Legionella pneumococcal antigen. Although I think it is most likely a pneumonia based on her clinical findings, there could be a small chance for congestive heart failure. I will add a BMP, although with her renal failure it might be elevated. An echo may be considered if the patient does not improve on therapy. 2. End-stage renal disease. Continue hemodialysis. 3. Hypertension. Continue current regimen. Adjust medications accordingly if necessary. 4. Depression, stable. Continue citalopram. 5. FEN. Renal diet. 6. DVT prophylaxis. Heparin subcu. 7. The patient is a do not resuscitate. TIME SPENT: Over 75 minutes was spent on his H and P, more than 40 minutes of which were spent in direct [id number] contact with the patient in evaluation, physical exam, counseling, and coordination of care. CC: Dr. Sascha Urbina* [id number]/[facility] #: [id number] MTDD
[2016-10-09 10:47] LABS: Hematocrit 28 % (35-47); Mean Corpuscular HGB Conc 32 g/dl (31-36); Mean Corpuscular Hemoglobin 27 pg (27-31); Mean Corpuscular Volume 85 fL (80-97); Mean Platelet Volume 8 um3 (7.4-10.4); Red Blood Count 3.33 10^6/ul (4.0-5.4); Red Cell Distribution Width 17 % (10.5-15); White Blood Count 5.2 10^3/ul (3.5-10.8)
[2016-10-09 11:04] LABS: BUN/Creatinine Ratio 9.5 (8-20); Calcium 9.5 mg/dL (8.6-10.3); EGFR African American 8.6 (>60); EGFR Non-African American 6.7 (>60)
[2016-10-09 11:06] LABS: Albumin 3.3 g/dL (3.2-5.2); BUN/Creatinine Ratio 9.5 (8-20); Calcium 9.1 mg/dL (8.6-10.3); EGFR African American 8.6 (>60); EGFR Non-African American 6.7 (>60); Globulin 3.4 g/dL (2-4); Total Bilirubin 0.3 mg/dL (0.2-1.0); Total Protein 6.7 g/dL (6.4-8.9)
--- NOTE | 2016-10-09 12:39 | PN ---
Subjective Date of Service: 10/09/16 Interval History: Patient seen this morning. Seems a bit confused, O2 was off and I replaced it. Reports cough that has been ongoing. Has not been productive but thinks it may be breaking up. No fever or chills. Family History: Unchanged from Admission Social History: Unchanged from Admission Past Medical History: Unchanged from Admission Objective Active Medications: Acetaminophen (Tylenol Tab*) 325 mg PO Q4H PRN Acetaminophen (Tylenol Supp*) 650 mg RI Q4H PRN Amlodipine Besylate (Norvasc Tab*) 10 mg PO BEDTIME GLADYS Benzonatate (Tessalon Cap*) 200 mg PO TID PRN Citalopram Hydrobromide (Celexa Tab*) 10 mg PO DAILY GLADYS Docusate Sodium (Colace Cap*) 100 mg PO BID PRN Heparin Sodium (Porcine) (Heparin Vial(*)) 5,000 units SUBCUT Q8HR GLADYS Azithromycin 500 mg/ Sodium (Chloride) 250 mls @ 250 mls/hr IVPB 0600 [facility] Ceftriaxone Sodium 1,000 mg/ (Sodium Chloride) 50 mls @ 200 mls/hr IVPB 0730 [facility] Metoprolol Succinate (Toprol Xl Tab*) 25 mg PO DAILY GLADYS Pantoprazole Sodium (Protonix Tab (Nf)) 40 mg PO BID GLADYS Senna (Senokot Tab*) 2 tab PO BEDTIME PRN Sevelamer Carbonate (Renvela Tab*) 3,200 mg PO TID WITH MEALS [facility] Vital Signs 10/09/16 10/09/16 10/09/16 05:32 06:01 07:39 Temperature 99.2 F 97.9 F Pulse Rate 80 77 Respiratory 21 21 Rate Blood Pressure 134/63 (mmHg) O2 Sat by Pulse 95 95 Oximetry 10/09/16 07:59 Temperature 97.9 F Pulse Rate 84 Respiratory 16 Rate Blood Pressure 152/76 (mmHg) O2 Sat by Pulse 96 Oximetry Oxygen Devices in Use Now: Nasal Cannula - 4L Appearance: Elderly, F, laying in bed in NAD Eyes: No Scleral Icterus Ears/Nose/Mouth/Throat: Mucous Membranes Moist Neck: NL Appearance and Movements; NL JVP Respiratory: Symmetrical Chest Expansion and Respiratory Effort, - - Rales in B/ L bases Cardiovascular: NL Sounds; No Murmurs; No JVD, RRR Abdominal: NL Sounds; No Tenderness; No Distention Lymphatic: No Cervical Adenopathy Extremities: No Edema, - - LUE fistula Skin: No Rash or Ulcers Neurological: - - Alert, oriented to self, place, "2011", "october", sunday Result Diagrams: 10/09/16 10:25 10/09/16 10:25 Assess/Plan/Problems-Billing Assessment: Acute hypoxic respiratory failure 2/2 CAP in a 76 yo F with hx of ESRD on HD, HTN, GERD, - Patient Problems (1) CAP (community acquired pneumonia) Current Visit: Yes Comment: Continue CTX/Azithromycin. Wean oxygen as tolerated. (2) ESRD (end stage renal disease) Current Visit: No Comment: on HD MWF. Continue renvela (3) HTN (hypertension) Current Visit: No Comment: Continue home Norvasc and Metoprolol (4) Depression Current Visit: No Comment: Continue Celexa (5) DVT prophylaxis Current Visit: No Comment: HSQ
[2016-10-09] MEDS ORDERED: Heparin DIALYSIS ONLY(*) 1,000 UNITS/ML VIAL DIALYSIS ONE (17:00)
[2016-10-09] MEDS: amLODIPine TAB* 5 MG PO SCH (21:15)
[2016-10-10] MEDS: Azithromycin IV(*) 500 MG in NS 0.9% 250 ML* 250 ML IVPB SCH (06:02)
[2016-10-10] MEDS: Heparin VIAL(*) 5000 UNITS/ML VIAL (FIVE THOUSAND) SUBCUT SCH ×3 (06:02→20:21)
[2016-10-10] MEDS: cefTRIAXone VIAL(*) 1,000 MG in NS 0.9% 50 ML* 50 ML IVPB SCH (07:29)
[2016-10-10] MEDS: Sevelamer TAB* 800 MG PO SCH ×3 (08:07→16:59)
[2016-10-10] MEDS: Citalopram TAB* 10 MG PO SCH (08:08)
[2016-10-10] MEDS: CMCS: Pantoprazole TAB (NF) 40 MG TAB PO SCH ×2 (08:08→20:21)
[2016-10-10] MEDS: Metoprolol Succinate XL TAB* 25 MG PO SCH (08:08)
--- NOTE | 2016-10-10 13:10 | PN ---
Subjective Date of Service: 10/10/16 Interval History: Patient seen this morning. Was a bit confused earlier as per nursing, less so when I evaluated but still present. Says her breathing seems easier. Not coughing much. Recalls she is in the hospital but cannot recall where she came from prior to hospitalization. Says she's been "jerked around" so much and has been in so many hospitals and rehab facilities she's not surprised she's confused. Family History: Unchanged from Admission Social History: Unchanged from Admission Past Medical History: Unchanged from Admission Objective Active Medications: Acetaminophen (Tylenol Tab*) 325 mg PO Q4H PRN Acetaminophen (Tylenol Supp*) 650 mg OK Q4H PRN Amlodipine Besylate (Norvasc Tab*) 10 mg PO BEDTIME GLADYS Benzonatate (Tessalon Cap*) 200 mg PO TID PRN Citalopram Hydrobromide (Celexa Tab*) 10 mg PO DAILY GLAD[facility] Docusate Sodium (Colace Cap*) 100 mg PO BID PRN Heparin Sodium (Porcine) (Heparin Vial(*)) 5,000 units SUBCUT Q8HR GLADYS Azithromycin 500 mg/ Sodium (Chloride) 250 mls @ 250 mls/hr IVPB 0600 [facility] Ceftriaxone Sodium 1,000 mg/ (Sodium Chloride) 50 mls @ 200 mls/hr IVPB 0730 [facility] Metoprolol Succinate (Toprol Xl Tab*) 25 mg PO DAILY GLADYS Pantoprazole Sodium (Protonix Tab (Nf)) 40 mg PO BID GLADYS Senna (Senokot Tab*) 2 tab PO BEDTIME PRN Sevelamer Carbonate (Renvela Tab*) 3,200 mg PO TID WITH MEALS [facility] Vital Signs 10/09/16 10/09/16 10/09/16 13:48 18:34 18:39 Temperature 97.7 F 98.2 F 98.2 F Pulse Rate 76 81 81 Respiratory 16 16 16 Rate Blood Pressure 128/59 123/48 123/48 (mmHg) O2 Sat by Pulse 96 100 100 Oximetry 10/09/16 10/09/16 10/10/16 20:00 23:26 03:41 Temperature 98.1 F 98.5 F Pulse Rate 81 83 Respiratory 16 16 16 Rate Blood Pressure 129/54 136/61 (mmHg) O2 Sat by Pulse 95 100 Oximetry 10/10/16 10/10/16 07:21 08:00 Temperature 97.9 F Pulse Rate 74 Respiratory 18 16 Rate Blood Pressure 111/55 (mmHg) O2 Sat by Pulse 94 Oximetry Oxygen Devices in Use Now: Nasal Cannula - 3L Appearance: Elderly, F, laying in bed in NAD Eyes: No Scleral Icterus Ears/Nose/Mouth/Throat: - - Dry MM Neck: NL Appearance and Movements; NL JVP Respiratory: Symmetrical Chest Expansion and Respiratory Effort, - - Diminshed in bases Cardiovascular: NL Sounds; No Murmurs; No JVD, RRR Abdominal: NL Sounds; No Tenderness; No Distention Lymphatic: No Cervical Adenopathy Extremities: No Edema, - - LUE fistula Neurological: - - Alert, oriented to self, place, day of the week, could not name year Result Diagrams: 10/09/16 10:25 10/09/16 10:25 Assess/Plan/Problems-Billing Assessment: Acute hypoxic respiratory failure 2/2 CAP in a 76 yo F with hx of ESRD on HD, HTN, GERD, - Patient Problems (1) CAP (community acquired pneumonia) Current Visit: Yes Comment: Continue CTX/Azithromycin (Day 2). Wean oxygen as tolerated. (2) Confusion Current Visit: No Comment: Intermittent, present at last admission. Will discuss baseline status with son. (3) ESRD (end stage renal disease) Current Visit: No Comment: on HD MWF. Continue renvela (4) HTN (hypertension) Current Visit: No Comment: Continue home Norvasc and Metoprolol (5) Depression Current Visit: No Comment: Continue Celexa (6) DVT prophylaxis Current Visit: No Comment: HSQ
--- NOTE | 2016-10-10 14:05 | PN ---
Hospitalist Progress Note Spoke with patient's son Ed. He says that patient has been declining over the past 2-3 months. Said that even prior to these hospitalizations she had some memory issues however around [place] she fell and struck her head hard and he says she seems to be declining faster since then. Does not feel like she is excelling at [employer] since she has been there and is thinking she will need senior living care. Says at her baseline she has some confusion, usually does not know the year, day of the week, etc. Updated him on PNA and patient's progress.
[2016-10-10] MEDS: amLODIPine TAB* 5 MG PO SCH (20:21)
[2016-10-11] MEDS: Heparin VIAL(*) 5000 UNITS/ML VIAL (FIVE THOUSAND) SUBCUT SCH (05:44)
[2016-10-11] MEDS: Azithromycin IV(*) 500 MG in NS 0.9% 250 ML* 250 ML IVPB SCH (05:44)
[2016-10-11] MEDS: cefTRIAXone VIAL(*) 1,000 MG in NS 0.9% 50 ML* 50 ML IVPB SCH (07:12)
[2016-10-11 07:29] VITALS: BP 119/55
[2016-10-11] MEDS: CMCS: Pantoprazole TAB (NF) 40 MG TAB PO SCH (08:37)
[2016-10-11] MEDS: Citalopram TAB* 10 MG PO SCH (08:37)
[2016-10-11] MEDS: Metoprolol Succinate XL TAB* 25 MG PO SCH (08:37)
[2016-10-11] MEDS: Sevelamer TAB* 800 MG PO SCH ×2 (08:37→13:01)
--- NOTE | 2016-10-11 12:34 | DCNOTE ---
Patient seen at HD. Says she is feeling well. Off o2, no SOB. Mild cough at times. Lungs with some diminished sounds at the bases but otherwise clear. Still slightly confused. D/C back to [facility] today to complete oral abx and resume rehab.
--- NOTE | 2016-10-11 13:19 | DS ---
DATE OF ADMISSION: 10/09/2016. DATE OF DISCHARGE: 10/11/2016. PRINCIPAL DISCHARGE DIAGNOSIS: Community-acquired pneumonia. SECONDARY DIAGNOSES: 1. End-stage renal disease, on dialysis. 2. Hypertension. 3. GERD. 4. Depression. DISCHARGE MEDICATION REGIMEN: 1. Cefpodoxime 200 mg by mouth 2 times daily times 4 days. 2. Tylenol 325 mg by mouth every 4 hours as needed for pain. 3. Aspirin 81 mg by mouth daily. 4. Omeprazole 20 mg by mouth 2 times daily. 5. Amlodipine 10 mg by mouth at bedtime. 6. Sevelamer 3200 mg by mouth 3 times daily. 7. Citalopram 10 mg by mouth daily. 8. Colace 100 mg by mouth 2 times daily as needed for constipation. 9. Toprol XL 25 mg by mouth daily. 10. Senna two tablets by mouth at bedtime as needed for constipation. 11. Citalopram 10 mg by mouth daily. HISTORY OF PRESENT ILLNESS AND HOSPITAL SUMMARY: Please see the full history and physical by Dr. Ruiz Beltran for full details. Briefly, Ms. Roche is a 76-year-old female who presented from [facility] to [facility] with cough, shortness of breath and wheezing. X-ray th ere showed evidence of pneumonia. She was started on antibiotics and supplemental oxygen. Due to h er need for hemodialysis, he was transferred to [facility] as this is not offered at [facility]. Here at [facility] she was continued on IV antibiotics and over the following day she was able to be weaned down from her oxygen. She has some intermittent episodes of confusion [facility] seems to be about baseline for the patient. I spoke with her son who states that ever since [facility], her mental status has been slowly declining as well as her physical status. He thinks that s he may end up needing long-term care. The patient will be discharged back to [facility] where [facility] determination can be made. She will complete her oral antibiotic therapy there. Total time spent on this discharge was 45 minutes. This is the summary of the hospitalization. Ple ase see the full medical record for further details. [id number]/[facility] #: [id number]
== END 2016-10-11 14:15 | DRG 193 ==
LOC: ED 23:57 → MEDTELE 10-09 03:44 → MED 10-09 17:44
PROVIDERS: ADMIT Internal Medicine; ATTEND Hospitalist
PROC: 5A1D60Z (ICD-10-PCS; principal; 2016-10-09)
DX: J18.1 Lobar pneumonia, unspecified organism (principal); N18.6 End stage renal disease; J96.01 Acute respiratory failure with hypoxia; I12.0 Hypertensive chronic kidney disease with stage 5 chronic kidney disease or end stage renal disease; F32.9 Major depressive disorder, single episode, unspecified; K21.9 Gastro-esophageal reflux disease without esophagitis; Z66 Do not resuscitate; R41.0 Disorientation, unspecified; E11.22 Type 2 diabetes mellitus with diabetic chronic kidney disease; Z72.89 Other problems related to lifestyle; Z99.2 Dependence on renal dialysis; Z87.891 Personal history of nicotine dependence; Z88.8 Allergy status to other drugs, medicaments and biological substances; Z79.82 Long term (current) use of aspirin
CPT/HCPCS: 36415; 80048; 80053; 83735; 83880; 84100; 85025; 90935; 94760; A9270-GY; G0257; J0456; J0696; J1644; J3370